=== PATIENT | female | born 1955 | race Caucasian/White ===

== ENCOUNTER → 2018-01-29 08:13 | Outpatient (CLI) | payer OTHER, SELFPAY ==
[2018-01-29 09:00] LABS: Add Manual Diff / Slide Review NO; Basophils Percent Auto 0.5 % (0-2); Eosinophils Percent Auto 16.1 % (2-4); Hematocrit 39.7 % (36-46); Hemoglobin 13.6 g/dL (12.0-16.0); Lymphocytes Percent Auto 28.6 % (25-40); Mean Corpuscular HGB Conc 34.3 % (30-36); Mean Corpuscular Hemoglobin 31.7 PG (26-34); Mean Corpuscular Volume 92.6 fL (80-100); Monocytes Percent Auto 5.4 % (3-14); Neutrophils Absolute Auto 6800 /uL (3000-5900); Neutrophils Percent Auto 49.4 % (50-75); Platelet Count 228 X10^3/uL (150-400); Red Blood Cell Count 4.28 X10^6/uL (4.0-5.2); Red Cell Distribution Width 13.1 % (11.6-14.8); White Blood Cell Count 13.7 X10^3/uL (4.5-11.0)
[2018-01-29 09:25] LABS: Alanine Aminotransferase 41 IU/L (9-52); Albumin 4.7 g/dL (3.5-5.0); Albumin Globulin Ratio 1.6 (1.0-2.8); Alkaline Phosphatase 66 U/L (38-126); Aspartate Aminotransferase 36 IU/L (14-36); BUN Creatinine Ratio 25.7 (6-22); Bilirubin Total 0.4 mg/dL (0.2-1.3); Blood Urea Nitrogen 18 mg/dL (7-17); Carbon Dioxide 28 mmol/L (22-32); Chloride 102 mmol/L (98-107); Cholesterol 195 mg/dL (140-199); Estimated Glomerular Filt Rate > 60.0 mL/min (>60); Globulin 2.9 g/dL (1.7-4.1); Glucose 104 mg/dL (80-110); HDL Cholesterol 41 mg/dL (40-60); HEMOLYSIS < 15 (0-50); LDL Cholesterol Calculated 122 mg/dL (<100); Potassium 4.5 mmol/L (3.4-5.1); Sodium 142 mmol/L (137-145); Total Protein 7.6 g/dL (6.3-8.2); Triglycerides 159 mg/dL (35-150)
[2018-01-29 10:07] LABS: Thyroid Stimulating Hormone 2.87 uIU/mL (0.47-4.68)
== END ==
PROVIDERS: Family Provider Nurse Practitioner Psychiatric/Mental Health; PCP Family Medicine; Visit Provider Family Medicine
DX: E03.9 Hypothyroidism, unspecified (principal); Z00.00 Encounter for general adult medical examination without abnormal findings
CPT/HCPCS: 36415; 80053; 80061; 84443; 85025

== ENCOUNTER → 2018-02-03 12:04 | Outpatient (CLI) | payer OTHER, SELFPAY | PROVIDERS: Family Provider Nurse Practitioner Psychiatric/Mental Health; PCP Family Medicine | DX: Z23 Encounter for immunization (principal) | CPT/HCPCS: 90471; 90686 ==

== ENCOUNTER → 2018-04-07 14:29 | Outpatient (CLI) | payer OTHER, SELFPAY ==
[2018-04-07 15:16] LABS: Add Manual Diff / Slide Review NO; Basophils Percent Auto 0.4 % (0-2); Eosinophils Percent Auto 3.7 % (2-4); Hematocrit 38.1 % (36-46); Hemoglobin 12.8 g/dL (12.0-16.0); Lymphocytes Percent Auto 28.8 % (25-40); Mean Corpuscular HGB Conc 33.7 % (30-36); Mean Corpuscular Hemoglobin 31.5 PG (26-34); Mean Corpuscular Volume 93.3 fL (80-100); Monocytes Percent Auto 6.5 % (3-14); Neutrophils Absolute Auto 5500 /uL (3000-5900); Neutrophils Percent Auto 60.6 % (50-75); Platelet Count 240 X10^3/uL (150-400); Red Blood Cell Count 4.08 X10^6/uL (4.0-5.2); Red Cell Distribution Width 13.2 % (11.6-14.8); White Blood Cell Count 9.1 X10^3/uL (4.5-11.0)
--- NOTE | 2018-04-07 15:29 | DI.RAD.S_ITS ---
PROCEDURE: XR CHEST 2V INDICATIONS: cough TECHNIQUE: 2 views of the chest were acquired. COMPARISON: [facility], , CHEST 2 VIEW, 05/11/2016, 10:06. FINDINGS: Surgical changes and devices: None. Lungs and pleura: No pleural effusions or pneumothorax. Lungs are clear. Mediastinum: Mediastinal contours are normal. Heart size is normal. Bones and chest wall: No suspicious bony abnormalities. Soft tissues appear unremarkable. IMPRESSION: No acute cardiopulmonary pathology. Dictated by: Jasvir Jacobo M.D. on 04/07/2018 at 16:44 Approved by: Jasvir Jacobo M.D. on 04/07/2018 at 16:44
[2018-04-07 15:44] LABS: Alanine Aminotransferase 49 IU/L (9-52); Albumin Globulin Ratio 1.5 (1.0-2.8); Alkaline Phosphatase 55 U/L (38-126); Aspartate Aminotransferase 33 IU/L (14-36); Bilirubin Total 0.1 mg/dL (0.2-1.3); Blood Urea Nitrogen 16 mg/dL (7-17); Calcium 9.5 mg/dL (8.4-10.2); Carbon Dioxide 25 mmol/L (22-32); Chloride 104 mmol/L (98-107); Estimated Glomerular Filt Rate 56.6 mL/min (>60); Globulin 2.6 g/dL (1.7-4.1); Glucose 113 mg/dL (80-110); HEMOLYSIS < 15 (0-50); Potassium 4.4 mmol/L (3.4-5.1); Sodium 141 mmol/L (137-145); Total Protein 6.6 g/dL (6.3-8.2)
[2018-04-07 16:15] LABS: Thyroid Stimulating Hormone 2.53 uIU/mL (0.47-4.68)
== END ==
PROVIDERS: Family Provider Nurse Practitioner Psychiatric/Mental Health; PCP Family Medicine; Visit Provider Family Medicine
DX: Z86.39 Personal history of other endocrine, nutritional and metabolic disease (principal); R42 Dizziness and giddiness; R05 Cough
CPT/HCPCS: 36415; 71046; 80053; 84443; 85025

== ENCOUNTER → 2018-04-15 07:41 | Outpatient (CLI) | payer OTHER, SELFPAY ==
--- NOTE | 2018-04-15 07:43 | DI.MRI.S_ITS ---
PROCEDURE: MR BRAIN (IAC) WWO CON INDICATIONS: vertigo TECHNIQUE: Noncontrast sagittal T1 spin echo, axial FLAIR, axial gradient echo, axial diffusion and ADC through the brain. Axial thin-slice 3D CISS, coronal TruFISP, axial T1 spin echo with fat saturation through the internal auditory canals. After the administration of contrast, thin slice axial and coronal T1 spin echo with fat saturation through the internal auditory canals, and axial T1 spin echo with fat saturation through the brain. COMPARISON: None. FINDINGS: Image quality: Excellent. Cerebellopontine angles: No cerebellopontine angle masses. Inner ear structures appear normally formed. No suspicious enhancement in the internal auditory canal or along the course of the 7th cranial nerve. CSF spaces: Ventricles are normal in size and shape. No extra-axial fluid collections. Basal cisterns are patent. Brain: No intracranial bleeds or mass effects. There scattered subcentimeter areas white matter signal change bilaterally. Lundberg-white matter interface is intact. No abnormal intracranial enhancement. Diffusion weighted images demonstrate no acute ischemic insults. Brainstem appears normal. Normal intravascular flow voids are present. Skull and face: Calvarial marrow signal is normal. Orbits appear normal. Mastoids appear clear. Mild left maxillary sinus disease. There is also moderate to severe left sphenoid sinus disease. IMPRESSION: No abnormal CP angle mass or enhancement. Scattered white matter (nonenhancing) signal changes which are technically nonspecific although statistically represent chronic microvascular ischemic disease. Left maxillary and sphenoid sinus disease. Dictated by: Yemi Evans M.D. on 04/15/2018 at 10:13 Approved by: Yemi Evans M.D. on 04/15/2018 at 10:28
== END ==
PROVIDERS: Family Provider Nurse Practitioner Psychiatric/Mental Health; PCP Family Medicine; Visit Provider Family Medicine
DX: R42 Dizziness and giddiness (principal); J32.8 Other chronic sinusitis
CPT/HCPCS: 70553; A9579

== ENCOUNTER → 2018-04-23 07:10 | Outpatient (CLI) | payer OTHER, SELFPAY ==
--- NOTE | 2018-04-23 07:11 | DI.MRI.S_ITS ---
PROCEDURE: MR LUMBAR SPINE WO CON INDICATIONS: pain TECHNIQUE: Noncontrast sagittal T1 spin echo and T2 fast echo, sagittal STIR, axial T1 and T2 fast spin echo through the lumbar spine. In cases with scoliosis, additional coronal T2 fast spin echo may be performed. COMPARISON: Located [facility], , L-SPINE WITHOUT CONTRAST, 08/14/2006, 7:53. FINDINGS: Image quality: Excellent. Alignment and Curvature: No plain films are available for comparison, for numbering purposes. Thus, for the purposes of this examination, 5 lumbar type vertebral bodies will be presumed, as denoted on the montage panel. This should be confirmed and correlated with plain films, prior to any lumbar spinal intervention. There is loss of normal lumbar lordosis. Bone Marrow: Marrow is of normal overall signal. No acute vertebral body compression fractures. There is mild reactive signal within the endplates adjacent to the L2-L3 and L3-L4 intervertebral discs. L3 hemangioma. Spinal Cord: Conus medullaris terminates at the upper L2 level. Visualized cord demonstrates normal signal and size. Paraspinous Soft Tissues: No paravertebral masses. L1-L2: Mild bilateral facet and ligamentum flavum hypertrophy. Mild epidural lipomatosis. No significant canal, nor foraminal stenosis. No change. L2-L3: Mild disc height loss and desiccation. Mild diffuse disc bulge. Mild facet hypertrophy bilaterally. Mild epidural lipomatosis. Mild canal stenosis. No foraminal stenosis. No change. L3-L4: Mild disc height loss and desiccation. Mild diffuse disc bulge. Mild facet hypertrophy bilaterally. Mild epidural lipomatosis. No significant canal, nor foraminal stenosis. L4-L5: Mild disc height loss and desiccation. Mild bilateral facet and ligamentum hypertrophy. Mild epidural lipomatosis. Mild canal stenosis. No foraminal stenosis. No change. L5-S1: Mild bilateral facet hypertrophy. No significant canal, nor foraminal stenosis. No change. IMPRESSION: 1. Multilevel degenerative disc and facet disease, causing mild canal stenoses, and no foraminal stenoses. No neural impingement. Dictated by: Amalia Mora M.D. on 04/23/2018 at 9:06 Approved by: Amalia Mora M.D. on 04/23/2018 at 9:54
--- NOTE | 2018-04-23 07:22 | DI.CT.S_ITS ---
PROCEDURE: CT SINUS SCREEN WO CON INDICATIONS: sinusitis TECHNIQUE: Noncontrast 3.0 mm axial images acquired from the frontal sinuses to the mid-sella, with coronal and sagittal reformats. For radiation dose reduction, the following was used: automated exposure control, adjustment of mA and/or kV according to patient size. COMPARISON: [facility], MR, MR BRAIN (IAC) WWO CON, 04/15/2018, 7:59. [facility], MR, BRAIN WITHOUT CONTRAST, 11/08/2009, 8:01. FINDINGS: Image quality: Excellent. Maxillary Sinuses: No bony remodeling or destruction. A small mucus retention cyst in right maxillary sinus. Ethmoid Air Cells: No bony remodeling or destruction. Sinuses are clear. Sphenoid Sinuses: No bony remodeling or destruction. Sinuses are clear. Frontal Sinuses: No bony remodeling or destruction. Sinuses are clear. Ostiomeatal Complexes: Ostiomeatal complexes are patent. No Coreen cells. Miscellaneous: Visualized intra-orbital contents are normal. No alessandro bullosa or paradoxical turbinate curvature. Mild rightward nasal septal deviation. IMPRESSION: 1. A mucous retention cyst in the right maxillary sinus. 2. Mild rightward nasal septum deviation. Dictated by: Jenniffer Archer M.D. on 04/23/2018 at 10:03 Approved by: Jenniffer Archer M.D. on 04/23/2018 at 10:06
== END ==
PROVIDERS: Family Provider Nurse Practitioner Psychiatric/Mental Health; PCP Family Medicine; Visit Provider Family Medicine
DX: M54.5 Low back pain (principal); M51.36 Other intervertebral disc degeneration, lumbar region; M48.061 Spinal stenosis, lumbar region without neurogenic claudication; J34.1 Cyst and mucocele of nose and nasal sinus; J34.2 Deviated nasal septum; J32.9 Chronic sinusitis, unspecified; G89.29 Other chronic pain
CPT/HCPCS: 70486; 72148

== ENCOUNTER → 2018-08-11 06:58 | Outpatient (CLI) | payer OTHER, SELFPAY ==
[2018-08-11 08:43] LABS: Add Manual Diff / Slide Review NO; Basophils Absolute Auto 0 /uL (0-100); Basophils Percent Auto 0.3 % (0-2); Eosinophils Absolute Auto 400 /uL (0-450); Hematocrit 40.5 % (36-46); Hemoglobin 13.4 g/dL (12.0-16.0); Lymphocytes Absolute Auto 4400 /uL (1100-4500); Lymphocytes Percent Auto 35.6 % (25-40); Mean Corpuscular Hemoglobin 31.2 PG (26-34); Mean Corpuscular Volume 94.4 fL (80-100); Monocytes Absolute Auto 800 /uL (0-900); Monocytes Percent Auto 6.4 % (3-14); Neutrophils Absolute Auto 6700 /uL (1500-7000); Neutrophils Percent Auto 54.7 % (50-75); Platelet Count 236 X10^3/uL (150-400); Red Blood Cell Count 4.29 X10^6/uL (4.0-5.2); Red Cell Distribution Width 13.2 % (11.6-14.8); White Blood Cell Count 12.3 X10^3/uL (4.5-11.0)
[2018-08-11 09:08] LABS: Alanine Aminotransferase 40 IU/L (9-52); Albumin 4.2 g/dL (3.5-5.0); Albumin Globulin Ratio 1.5 (1.0-2.8); Alkaline Phosphatase 60 U/L (38-126); Aspartate Aminotransferase 27 IU/L (14-36); BUN Creatinine Ratio 23.3 (6-22); Bilirubin Total 0.3 mg/dL (0.2-1.3); Blood Urea Nitrogen 14 mg/dL (7-17); Calcium 9.6 mg/dL (8.4-10.2); Carbon Dioxide 24 mmol/L (22-32); Chloride 104 mmol/L (98-107); Cholesterol 152 mg/dL (140-199); Estimated Glomerular Filt Rate > 60.0 mL/min (>60); Globulin 2.8 g/dL (1.7-4.1); Glucose 88 mg/dL (80-110); HDL Cholesterol 33 mg/dL (40-60); HEMOLYSIS < 15 (0-50); LDL Cholesterol Calculated 82 mg/dL (<100); Magnesium 1.9 mg/dL (1.6-2.3); Potassium 4.7 mmol/L (3.4-5.1); Sodium 138 mmol/L (137-145); Triglycerides 186 mg/dL (35-150)
[2018-08-11 09:36] LABS: Thyroid Stimulating Hormone 5.33 uIU/mL (0.47-4.68)
== END ==
PROVIDERS: PCP Family Medicine; Visit Provider Family Medicine
DX: I10 Essential (primary) hypertension (principal)
CPT/HCPCS: 36415; 80053; 80061; 83735; 84443; 85025

== ENCOUNTER → 2018-08-26 11:06 | Outpatient (CLI) | payer OTHER, SELFPAY ==
--- NOTE | 2018-08-26 11:08 | DI.MG.S_ITS ---
BILATERAL DIGITAL SCREENING MAMMOGRAM 3D/2D WITH CAD: 08/26/2018 CLINICAL: Routine screening. Comparison is made to exams dated: 09/14/2016 mammogram, 09/14/2015 mammogram, and 09/08/2014 mammogram - [facility]. The tissue of both breasts is heterogeneously dense. This may lower the sensitivity of mammography. Current study was also evaluated with a Computer Aided Detection (CAD) system. No significant masses, calcifications, or other findings are seen in either breast. There has been no significant interval change. IMPRESSION: NEGATIVE There is no mammographic evidence of malignancy. A 1 year screening mammogram is recommended. This exam was interpreted at Station ID: [id number]. NOTE: For mammograms, a report in lay terms will be sent to the patient. Approximately 15% of breast malignancies will not be visualized mammographically. In the management of a palpable breast mass, a negative mammogram must not discourage biopsy of a clinically suspicious lesion. Electronically Signed By: Sushant chadwick/sy:08/26/2018 12:49:42 letter sent: Normal Exam ACR BI-RADS Category 1: Negative [id number]
== END ==
PROVIDERS: Family Provider Family Medicine; PCP Family Medicine; Visit Provider Family Medicine
DX: Z12.31 Encounter for screening mammogram for malignant neoplasm of breast (principal)
CPT/HCPCS: 77063; 77067

== ENCOUNTER → 2018-08-29 07:11 | Outpatient (CLI) | payer OTHER, SELFPAY ==
--- NOTE | 2018-08-29 07:13 | DI.ECHO.S_ITS ---
[facility] +---------+ : : [address] [place] : : : : [id number] : : : : Phone: [phone]+ Echocardiogram Report + + :Name: ANYA HALE Study Date: 08/29/2018 Height: 65 in : :[facility] Weight: 193 lb : : Gender: Female BSA: 1.9 m2 : :: 1955 Age: 62 yrs BP: 140/86 mmHg: :Reason For Study: Atrial fibrillation - paroxysmal : :Ordering Physician: Dr. Gee : :Leroy Performed By: Shelley Marlow : :Referring: VIJAYA BECERRA : + + Interpretation Summary The left ventricle is normal in size. Left ventricular systolic function is normal without focal wall motion abnormalities. The ejection fraction is estimated to be 60-65%. Diastolic parameters suggest probable normal left entricular diastolic function and normal filling pressures. The right ventricle is normal in size and function. Right ventricular systolic pressure is estimated to be 17 mmHg plus the clinically estimated CVP which cannot be estimated on this exam. The left atrium is mildly dilated. Right atrial size is normal. There is no significant valvular heart disease. The aortic root is normal size. No significant changes since 05/11/2011. Procedure: A two-dimensional transthoracic echocardiogram with color flow and Doppler was performed. The study quality was technically adequate. Comparison is made with the echocardiogram of 05/11/2011. The patient was in normal sinus rhythm during the exam. Left Ventricle: The left ventricle is normal in size. Left ventricular wall thickness is mildly increased. There is no ventricular septal defect visualized. Left ventricular systolic function is normal without focal wall motion abnormalities. The ejection fraction is estimated to be 60-65%. Diastolic parameters suggest probable normal left ventricular diastolic function and normal filling pressures. Right Ventricle: The right ventricle is normal in size and function. Atria: The left atrium is mildly dilated. Right atrial size is normal. There is no Doppler evidence for an interatrial shunt. Mitral Valve: The mitral valve is normal in structure and function. There is no mitral regurgitation noted. Aortic Valve: The aortic valve is normal in structure and function. No aortic regurgitation is present. Tricuspid Valve: The tricuspid valve is normal in structure and function. There is a trace or physiologic amount of tricuspid regurgitation. Right ventricular systolic pressure is estimated to be 17 mmHg plus the clinically estimated CVP which cannot be estimated on this exam. Pulmonic Valve: The pulmonic valve is not well seen, but is grossly normal. There is a trace or physiologic amount of pulmonic regurgitation. There is no significant valvular heart disease. Great Vessels: The aortic root is normal size. The ascending aorta is normal in size. The aortic arch is normal in size. The inferior vena cava was not visualized. Pericardium/ Pleura There is no pericardial effusion. MMode/2D Measurements & Calculations LVIDd: 4.7 cm LVOT diam: 2.1 cm LVIDs: 3.2 cm Ao root diam: 2.9 cm FS: 32.2 % Aortic Jxn: 2.4 cm EPSS: 0.57 cm asc Aorta Diam: 3.2 cm IVSd: 1.1 cm Ao Arch Diam (Prox Trans): 2.7 cm LVPWd: 1.1 cm LV gomez. diameter/BSA (cm/m^2): 2.4 LV sys. diameter/BSA (cm/m^2): 1.6 LA A2 area: 22.2 cm2 RA long axis: 4.4 cm LA A4 area: 21.2 cm2 RA area: 13.8 cm2 LA length (vol): 5.5 cm RA vol: 36.8 ml LA vol: 73.2 ml RA : 18.9 ml/m2 LA vol index: 37.6 ml/m2 RVD1 (basal): 3.3 cm TAPSE: 1.9 cm Doppler Measurements & Calculations Ao V2 max: 121.2 cm/sec LVOT Max Moises: 83.7 cm/sec Ao V2 mean: 89.1 cm/sec LV V1 max P.8 mmHg Ao max P.9 mmHg LV V1 VTI: 15.6 cm Ao mean P.4 mmHg ALEJANDRO(I,D): 2.3 cm2 Ao V2 VTI: 24.2 cm ALEJANDRO(V,D): 2.5 cm2 sev ratio: 0.64 ALEJANDRO indexed to BSA (cm^2/m^2): 1.2 MV E max moises: 60.9 cm/sec TR max moises: 208.0 cm/sec MV A max moises: 55.1 cm/sec TR max P.3 mmHg MV E/A: 1.1 PA V2 max: 76.6 cm/sec Med Peak E' Moises: 6.0 cm/sec PA V2 mean: 55.5 cm/sec E/E' med: 10.1 PA mean P.3 mmHg Lat Peak E' Moises: 10.4 cm/sec PA Accel Time: 0.10 sec E/E' lat: 5.8 E/e' average: 8.0 MV dec time: 0.17 sec MV P1/2t: 52.4 msec MV P1/2t max moises: 60.9 cm/sec SV(LVOT): 55.6 ml MVA(2t): 4.2 cm2 Reading Physician:08:48 AM
== END ==
PROVIDERS: Family Provider Family Medicine; PCP Family Medicine; Visit Provider Family Medicine
DX: I48.0 Paroxysmal atrial fibrillation (principal); R07.89 Other chest pain
CPT/HCPCS: 93306

== ENCOUNTER → 2018-09-01 10:38 | Outpatient (CLI) | payer OTHER, SELFPAY | PROVIDERS: Family Provider Family Medicine; PCP Family Medicine; Visit Provider Family Medicine | DX: L98.9 Disorder of the skin and subcutaneous tissue, unspecified (principal) | CPT/HCPCS: 87070; 87205 ==

== ENCOUNTER 2018-09-16 16:45 | Outpatient (RCR) | payer OTHER, SELFPAY ==
--- NOTE | 2018-07-20 17:11 | PT.OPPOC ---
Current Diagnoses Cervicalgia (07/29/18) Low back pain (07/29/18) Provider Visit Care Team Role Provider Type PRICE Rodriguez Family Provider Non-Staff Specialty: Medical Address: [address], [address] Email: Gerard Harepr MD Attending Provider Physician Primary Care Provider Specialty: Family Practice Address: [address] [place] [address], [id number] Email: [email or web address] Plan Of Care PT-OP-T Assessment and Plan Start: 07/22/18 17:10 Freq: Status: Active Protocol: Document 07/22/18 17:11 EA (Rec: 07/22/18 17:38 EA [id number]) Physical Therapy Assessment Rehab Potential Rehabilitation Potential Fair Evaluation Complexity Number of Personal Factors/Comorbidities 1-2 Number of Body Systems Impaired 3 Clinical Presentation at Evaluation Evolving Impairments Impairments Activity Tolerance Pain Posture ROM Soft Tissue Mobility Goals Three Impairment Impaired sleep time Intermediate Goal (LTG) Patient will sleep more than 6 hours without bothering from neck and low back pain LTG Duration 4 wks Two Impairment Oswetry low back index score of 15/50 Intermediate Goal (LTG) Patient will have Oswetry score of <10/50 LTG Duration 4 wks One Impairment Neck disability index score 15 /50 Cardio Clinician Goal (LTG) Patient will have Neck disability score of < 10/50 LTG Duration 4 wks Assessment Summary Assessment Plesant 62 y/o F patient with a referring diagnosis of neck and low back pain. Today patient exhibited slight limitation lumbar and cervical mobility due to tightness and pain. Special tests reveals positive with posterior quadrant test to cervical and lumbar region with no nerve compression noted. Due to pain and discomfort to low back and cervical region, patient has difficulty sleeping, sitting and standing for along period of time. In my professional opinion patient would benefit with skilled PT to address the aforementioned issues. Physical Therapy Plan Frequency and Duration Frequency of Treatment 2x/Week Duration of Treatment 8 wks Plan of Care Start Date 07/22/18 Plan of Care End Date 09/16/18 Therapeutic Interventions Therapeutic Interventions Home Exercise Program Joint Mobilizations Manual Therapy Patient/Caregiver Education Self-Care/Home Management Soft Tissue Mobilization Therapeutic Activities Therapeutic Exercises Modalities Cold Pack/Ice Massage Electric Stimulation Hot Packs Ultrasound Next Visit Focus/Plan Next Note Type Treatment Note Plan of Care Dates Plan of Care Start Date 07/22/18 Plan of Care End Date 09/16/18 Please Sign and Return: I have reviewed this Plan of Care and certify that the skilled therapy services above are required to meet the patient?s needs. Physician Signature Date Printed Name and Credentials Clinical Instructor Signature Printed Name and Credentials
--- NOTE | 2018-07-20 17:11 | PT.OIE ---
Current Diagnoses Cervicalgia (07/29/18) Low back pain (07/29/18) Past Medical History (Last Updated 01/31/18 @ 21:17 by Amanda Forrester) Allergy (Chronic) Anxiety (Chronic ~2001) Bilateral bunions (Chronic) Cataracts, bilateral (Chronic ~2009) Cervical spine disease (Chronic) Chronic back pain (Chronic) Depression (Chronic ~1971) Headache (Chronic ~1969) Herniated cervical disc (Chronic) Hypothyroidism (Chronic ~2002) Irritable bowel syndrome (Chronic ~1999) Menopause (Chronic ~2005) Migraines (Chronic ~1969) SVT (supraventricular tachycardia) (Chronic) Chicken pox (Resolved) Herpes (Resolved ~1979) Suicide attempt (Resolved ~2007) Past Surgical History (Last Updated 01/31/18 @ 21:17 by Amanda Forrester) Anesthesia (Resolved) History of biopsy (Resolved ~2003) History of surgery (Resolved ~2002) Lipoma (Resolved ~1997) Status post endometrial ablation (~1992) Status post vaginal hysterectomy (~1997) Provider Visit Care Team Role Provider Type PRICE Rodriguez Family Provider Non-Staff Specialty: Medical Address: [address] [place] [address], [address] Email: Gerard Harper MD Attending Provider Physician Primary Care Provider Specialty: Family Practice Address: [address] [place] [address], [facility] Email: [email or web address] Physical Therapy Initial Evaluation PT-OP-A Visit Information Start: 07/22/18 17:10 Freq: Status: Active Protocol: Document 07/22/18 17:11 EA (Rec: 07/22/18 17:38 EA [id number]) Out-Patient Physical Therapy Visit Information Visit Information Visit Type Initial Evaluation Visit Start Time 16:00 Visit Stop Time 16:40 Total Visit Minutes 40 Visit Number 1 Number of GEOSPATIAL TECHNOLOGIST Visits 0 Evaluation Information Evaluation Date 07/22/18 PT-OP-B Current Condition Start: 07/22/18 17:10 Freq: Status: Active Protocol: Document 07/22/18 17:11 EA (Rec: 07/22/18 17:38 EA [id number]) Current Condition History of Current Condition Onset Date 6 months ago Current Complaints Localized lumbar and cervical pain History of Current Condition Patient reports present complaint of cervical and lumbar localized aching pain started > 10 years ago but was out of pain five years ago; states flared ups happens 6 months ago with no known reasons. 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 PT-OP-C Subjective Start: 07/22/18 17:10 Freq: Status: Active Protocol: Document 07/22/18 17:11 EA (Rec: 07/23/18 07:30 EA [id number]) OP-PT Subjective Patient Comments Patient Comments I don't necessarily believe in PT But it may help me. Pt reports had multple session with PT in the past but similar complaints were no resolved. Patient Reported Progress Same Patient Questionnaires Neck Disability Index NDI Score 15 Neck Disability Index Impairment 1 to 19% Impaired (Score 1-9) Oswestry Low Back Index Oswestry Score 15 Oswestry Impairment 1 to 19% Impaired (Score 1-19) OP-PT Pain Assessment Pain Assessment Grid Paper Pain Assessment Grid Completed Yes Location Bilateral Lower Posterior Lateral Back Intensity 4 Scale Used Numeric (1 - 10) Description Aching Tender Frequency Intermittent Pain Alleviating Factors Heat Medication Bilateral Posterior Neck Pain Location Details 4 Scale Used Numeric (1 - 10) Description Aching Tender Frequency Intermittent Pain Alleviating Factors Heat Medication Home Pain Medication Use Pain Medications Used Yes PT-OP-G Mobility & Gait Start: 07/22/18 17:10 Freq: Status: Active Protocol: Document 07/22/18 17:11 EA (Rec: 07/23/18 07:23 EA [id number]) OP Gait Assessment Gait Gait Assistance Required: Independent Assistive Devices Assistive Device None Gait Deviations General Gait Pattern Within Normal Limits Comments Gait Comments Patient ambulates with no gait deviation noted PT-OP-J Posture/Palpation/Skin Start: 07/22/18 17:10 Freq: Status: Active Protocol: Document 07/22/18 17:38 EA (Rec: 07/22/18 17:40 EA [id number]) Posture Evaluation Position Standing Evaluation View ant/lat Head/C-Spine Posture Flexed L-Spine Posture Increased Lordosis Scapula Posture (L) Retracted Pelvis Posture Anteriorly Tilted Palpation Assessment Location One Palpation Findings Tenderness PT-OP-K Range of Motion Start: 07/22/18 17:10 Freq: Status: Active Protocol: Document 07/22/18 17:11 EA (Rec: 07/22/18 17:38 EA [id number]) Cervical Spine Range of Motion Cervical Spine Active Percentage Testing Position Sitting Flexion 80 Extension 80 Rotation Left 90 Rotation Right 90 Lateral Flexion Left 80 Lateral Flexion Right 80 ROM Limitations Soft Tissue Tightness Pain Lumbar Spine Range of Motion Lumbar Spine Active Percentage Flexion 100 Extension 50 Rotation Left 85 Rotation Right 85 Lateral Flexion Left 70 Lateral Flexion Right 70 ROM Limitations Soft Tissue Tightness Pain PT-OP-L Special Tests Start: 07/22/18 17:10 Freq: Status: Active Protocol: Document 07/22/18 17:11 EA (Rec: 07/22/18 17:38 EA [id number]) Special Tests Cervical Spine Special Tests Other- 1 Test Results + posterior quadrant for facets Vertebral Artery Test Results - Lumbar Spine Special Tests Other- 1 Test Results + posterior quadrant test ( facets) Prone Instability Test Test Results - Straight Leg Raise Test Results - PT-OP-M Strength Start: 07/22/18 17:10 Freq: Status: Active Protocol: Document 07/22/18 17:11 EA (Rec: 07/22/18 17:38 EA [id number]) Shoulder Strength Shoulder Manual Muscle Testing Right Reason Not Measured WFL Left Reason Not Measured WFL Hip Strength Hip Manual Muscle Testing Right Reason Not Measured WFL Left Reason Not Measured WFL Knee Strength Knee Manual Muscle Testing Right Reason Not Measured WFL Left Reason Not Measured WFL PT-OP-Q Treatments Start: 07/22/18 17:10 Freq: Status: Active Protocol: Document 07/22/18 17:11 EA (Rec: 07/22/18 17:38 EA [id number]) Self-Care/Home Management Treatment Education Patient Education Body Mechanics Pain Management Posture Other Education Discussed the importance daily light to mod aerobic exercises. PT-OP-T Assessment and Plan Start: 07/22/18 17:10 Freq: Status: Active Protocol: Document 07/22/18 17:11 SAVANNAH (Rec: 07/22/18 17:38 EA [id number]) Physical Therapy Assessment Rehab Potential Rehabilitation Potential Fair Evaluation Complexity Number of Personal Factors/Comorbidities 1-2 Number of Body Systems Impaired 3 Clinical Presentation at Evaluation Evolving Impairments Impairments Activity Tolerance Pain Posture ROM Soft Tissue Mobility Goals Three Impairment Impaired sleep time Mechanical Design Engineer Facilities Goal (LTG) Patient will sleep more than 6 hours without bothering from neck and low back pain LTG Duration 4 wks Two Impairment Oswetry low back index score of 15/50 Mechanical Design Engineer Facilities Goal (LTG) Patient will have Oswetry score of <10/50 LTG Duration 4 wks One Impairment Neck disability index score 15 /50 Mechanical Design Engineer Facilities Goal (LTG) Patient will have Neck disability score of < 10/50 LTG Duration 4 wks Assessment Summary Assessment Pleasant 62 y/o F patient with a referring diagnosis of neck and low back pain. Today patient exhibited slight limitation lumbar and cervical mobility due to tightness and pain. Special tests reveals positive with posterior quadrant test to cervical and lumbar region with no nerve compression noted. Due to pain and discomfort to low back and cervical region, patient has difficulty sleeping, sitting and standing for along period of time. In my professional opinion patient would benefit with skilled PT to address the aforementioned issues. Physical Therapy Plan Frequency and Duration Frequency of Treatment 2x/Week Duration of Treatment 8 wks Plan of Care Start Date 07/22/18 Plan of Care End Date 09/16/18 Therapeutic Interventions Therapeutic Interventions Home Exercise Program Joint Mobilizations Manual Therapy Patient/Caregiver Education Self-Care/Home Management Soft Tissue Mobilization Therapeutic Activities Therapeutic Exercises Modalities Cold Pack/Ice Massage Electric Stimulation Hot Packs Ultrasound Next Visit Focus/Plan Next Note Type Treatment Note
--- NOTE | 2018-07-22 17:11 | PT.OPPOC ---
Current Diagnoses Cervicalgia (07/29/18) Low back pain (07/29/18) Provider Visit Care Team Role Provider Type PRICE Rodriguez Family Provider Non-Staff Specialty: Medical Address: [address], [address] Email: Gerard Harper MD Attending Provider Physician Primary Care Provider Specialty: Family Practice Address: [address] [place] [address], [id number] Email: [email or web address] Plan Of Care PT-OP-T Assessment and Plan Start: 07/22/18 17:10 Freq: Status: Active Protocol: Document 07/22/18 17:11 EA (Rec: 07/22/18 17:38 EA [id number]) Physical Therapy Assessment Rehab Potential Rehabilitation Potential Fair Evaluation Complexity Number of Personal Factors/Comorbidities 1-2 Number of Body Systems Impaired 3 Clinical Presentation at Evaluation Evolving Impairments Impairments Activity Tolerance Pain Posture ROM Soft Tissue Mobility Goals Three Impairment Impaired sleep time Jail Goal (LTG) Patient will sleep more than 6 hours without bothering from neck and low back pain LTG Duration 4 wks Two Impairment Oswetry low back index score of 15/50 Jail Goal (LTG) Patient will have Oswetry score of <10/50 LTG Duration 4 wks One Impairment Neck disability index score 15 /50 Aerobics Teacher Goal (LTG) Patient will have Neck disability score of < 10/50 LTG Duration 4 wks Assessment Summary Assessment Pleasant 62 y/o F patient with a referring diagnosis of neck and low back pain. Today patient exhibited slight limitation lumbar and cervical mobility due to tightness and pain. Special tests reveals positive with posterior quadrant test to cervical and lumbar region with no nerve compression noted. Due to pain and discomfort to low back and cervical region, patient has difficulty sleeping, sitting and standing for along period of time. In my professional opinion patient would benefit with skilled PT to address the aforementioned issues. Physical Therapy Plan Frequency and Duration Frequency of Treatment 2x/Week Duration of Treatment 8 wks Plan of Care Start Date 07/22/18 Plan of Care End Date 09/16/18 Therapeutic Interventions Therapeutic Interventions Home Exercise Program Joint Mobilizations Manual Therapy Patient/Caregiver Education Self-Care/Home Management Soft Tissue Mobilization Therapeutic Activities Therapeutic Exercises Modalities Cold Pack/Ice Massage Electric Stimulation Hot Packs Ultrasound Next Visit Focus/Plan Next Note Type Treatment Note Plan of Care Dates Plan of Care Start Date 07/22/18 Plan of Care End Date 09/16/18 Please Sign and Return: I have reviewed this Plan of Care and certify that the skilled therapy services above are required to meet the patient?s needs. Physician Signature Date Printed Name and Credentials Clinical Instructor Signature Printed Name and Credentials
--- NOTE | 2018-07-22 17:11 | PT.OIE ---
Current Diagnoses Cervicalgia (07/29/18) Low back pain (07/29/18) Past Medical History (Last Updated 01/31/18 @ 21:17 by Amanda Forrester) Allergy (Chronic) Anxiety (Chronic ~2001) Bilateral bunions (Chronic) Cataracts, bilateral (Chronic ~2009) Cervical spine disease (Chronic) Chronic back pain (Chronic) Depression (Chronic ~1971) Headache (Chronic ~1969) Herniated cervical disc (Chronic) Hypothyroidism (Chronic ~2002) Irritable bowel syndrome (Chronic ~1999) Menopause (Chronic ~2005) Migraines (Chronic ~1969) SVT (supraventricular tachycardia) (Chronic) Chicken pox (Resolved) Herpes (Resolved ~1979) Suicide attempt (Resolved ~2007) Past Surgical History (Last Updated 01/31/18 @ 21:17 by Amanda Forrester) Anesthesia (Resolved) History of biopsy (Resolved ~2003) History of surgery (Resolved ~2002) Lipoma (Resolved ~1997) Status post endometrial ablation (~1992) Status post vaginal hysterectomy (~1997) Provider Visit Care Team Role Provider Type PRICE Rodriguez Family Provider Non-Staff Specialty: Medical Address: [address] [place] [address], [id number] Email: Gerard Harper MD Attending Provider Physician Primary Care Provider Specialty: Family Practice Address: [address] [place] [address], [facility] Email: [email or web address] Physical Therapy Initial Evaluation PT-OP-A Visit Information Start: 07/22/18 17:10 Freq: Status: Active Protocol: Document 07/22/18 17:11 EA (Rec: 07/22/18 17:38 EA [id number]) Out-Patient Physical Therapy Visit Information Visit Information Visit Type Initial Evaluation Visit Start Time 16:00 Visit Stop Time 16:40 Total Visit Minutes 40 Visit Number 1 Number of BLUEPRINT DUPLICATOR Visits 0 Evaluation Information Evaluation Date 07/22/18 PT-OP-B Current Condition Start: 07/22/18 17:10 Freq: Status: Active Protocol: Document 07/22/18 17:11 EA (Rec: 07/22/18 17:38 EA [id number]) Current Condition History of Current Condition Onset Date 6 months ago Current Complaints Localized lumbar and cervical pain History of Current Condition Patient reports present complaint of cervical and lumbar localized aching pain started > 10 years ago but was out of pain five years ago; states flared ups happens 6 months ago with no known reasons. 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 PT-OP-C Subjective Start: 07/22/18 17:10 Freq: Status: Active Protocol: Document 07/22/18 17:11 EA (Rec: 07/23/18 07:30 EA [id number]) OP-PT Subjective Patient Comments Patient Comments I don't necessarily believe in PT But it may help me. Pt reports had multple session with PT in the past but similar complaints were no resolved. Patient Reported Progress Same Patient Questionnaires Neck Disability Index NDI Score 15 Neck Disability Index Impairment 1 to 19% Impaired (Score 1-9) Oswestry Low Back Index Oswestry Score 15 Oswestry Impairment 1 to 19% Impaired (Score 1-19) OP-PT Pain Assessment Pain Assessment Grid Paper Pain Assessment Grid Completed Yes Location Bilateral Lower Posterior Lateral Back Intensity 4 Scale Used Numeric (1 - 10) Description Aching Tender Frequency Intermittent Pain Alleviating Factors Heat Medication Bilateral Posterior Neck Pain Location Details 4 Scale Used Numeric (1 - 10) Description Aching Tender Frequency Intermittent Pain Alleviating Factors Heat Medication Home Pain Medication Use Pain Medications Used Yes PT-OP-G Mobility & Gait Start: 07/22/18 17:10 Freq: Status: Active Protocol: Document 07/22/18 17:11 EA (Rec: 07/23/18 07:23 EA [id number]) OP Gait Assessment Gait Gait Assistance Required: Independent Assistive Devices Assistive Device None Gait Deviations General Gait Pattern Within Normal Limits Comments Gait Comments Patient ambulates with no gait deviation noted PT-OP-J Posture/Palpation/Skin Start: 07/22/18 17:10 Freq: Status: Active Protocol: Document 07/22/18 17:38 EA (Rec: 07/22/18 17:40 EA [id number]) Posture Evaluation Position Standing Evaluation View ant/lat Head/C-Spine Posture Flexed L-Spine Posture Increased Lordosis Scapula Posture (L) Retracted Pelvis Posture Anteriorly Tilted Palpation Assessment Location One Palpation Findings Tenderness PT-OP-K Range of Motion Start: 07/22/18 17:10 Freq: Status: Active Protocol: Document 07/22/18 17:11 EA (Rec: 07/22/18 17:38 EA [id number]) Cervical Spine Range of Motion Cervical Spine Active Percentage Testing Position Sitting Flexion 80 Extension 80 Rotation Left 90 Rotation Right 90 Lateral Flexion Left 80 Lateral Flexion Right 80 ROM Limitations Soft Tissue Tightness Pain Lumbar Spine Range of Motion Lumbar Spine Active Percentage Flexion 100 Extension 50 Rotation Left 85 Rotation Right 85 Lateral Flexion Left 70 Lateral Flexion Right 70 ROM Limitations Soft Tissue Tightness Pain PT-OP-L Special Tests Start: 07/22/18 17:10 Freq: Status: Active Protocol: Document 07/22/18 17:11 EA (Rec: 07/22/18 17:38 EA [id number]) Special Tests Cervical Spine Special Tests Other- 1 Test Results + posterior quadrant for facets Vertebral Artery Test Results - Lumbar Spine Special Tests Other- 1 Test Results + posterior quadrant test ( facets) Prone Instability Test Test Results - Straight Leg Raise Test Results - PT-OP-M Strength Start: 07/22/18 17:10 Freq: Status: Active Protocol: Document 07/22/18 17:11 EA (Rec: 07/22/18 17:38 EA [id number]) Shoulder Strength Shoulder Manual Muscle Testing Right Reason Not Measured WFL Left Reason Not Measured WFL Hip Strength Hip Manual Muscle Testing Right Reason Not Measured WFL Left Reason Not Measured WFL Knee Strength Knee Manual Muscle Testing Right Reason Not Measured WFL Left Reason Not Measured WFL PT-OP-Q Treatments Start: 07/22/18 17:10 Freq: Status: Active Protocol: Document 07/22/18 17:11 EA (Rec: 07/22/18 17:38 EA [id number]) Self-Care/Home Management Treatment Education Patient Education Body Mechanics Pain Management Posture Other Education Discussed the importance daily light to mod aerobic exercises. PT-OP-T Assessment and Plan Start: 07/22/18 17:10 Freq: Status: Active Protocol: Document 07/22/18 17:11 SAVANNAH (Rec: 07/22/18 17:38 EA [id number]) Physical Therapy Assessment Rehab Potential Rehabilitation Potential Fair Evaluation Complexity Number of Personal Factors/Comorbidities 1-2 Number of Body Systems Impaired 3 Clinical Presentation at Evaluation Evolving Impairments Impairments Activity Tolerance Pain Posture ROM Soft Tissue Mobility Goals Three Impairment Impaired sleep time Bat Lathe Operator Goal (LTG) Patient will sleep more than 6 hours without bothering from neck and low back pain LTG Duration 4 wks Two Impairment Oswetry low back index score of 15/50 Bat Lathe Operator Goal (LTG) Patient will have Oswetry score of <10/50 LTG Duration 4 wks One Impairment Neck disability index score 15 /50 Bat Lathe Operator Goal (LTG) Patient will have Neck disability score of < 10/50 LTG Duration 4 wks Assessment Summary Assessment Pleasant 62 y/o F patient with a referring diagnosis of neck and low back pain. Today patient exhibited slight limitation lumbar and cervical mobility due to tightness and pain. Special tests reveals positive with posterior quadrant test to cervical and lumbar region with no nerve compression noted. Due to pain and discomfort to low back and cervical region, patient has difficulty sleeping, sitting and standing for along period of time. In my professional opinion patient would benefit with skilled PT to address the aforementioned issues. Physical Therapy Plan Frequency and Duration Frequency of Treatment 2x/Week Duration of Treatment 8 wks Plan of Care Start Date 07/22/18 Plan of Care End Date 09/16/18 Therapeutic Interventions Therapeutic Interventions Home Exercise Program Joint Mobilizations Manual Therapy Patient/Caregiver Education Self-Care/Home Management Soft Tissue Mobilization Therapeutic Activities Therapeutic Exercises Modalities Cold Pack/Ice Massage Electric Stimulation Hot Packs Ultrasound Next Visit Focus/Plan Next Note Type Treatment Note
--- NOTE | 2018-07-29 18:03 | PT.OTN ---
Current Diagnoses Cervicalgia (07/29/18) Low back pain (07/29/18) Physical Therapy Treatment Note PT-OP-A Visit Information Start: 07/22/18 17:10 Freq: Status: Active Protocol: Document 07/29/18 17:00 HH (Rec: 07/29/18 18:03 HH [email or web address]) Out-Patient Physical Therapy Visit Information Visit Information Visit Type Treatment Note Visit Start Time 17:00 Visit Stop Time 17:55 Total Visit Minutes 55 Visit Number 2 Number of WATER VALVE REPAIRER Visits 0 PT-OP-B Current Condition Start: 07/22/18 17:10 Freq: Status: Active Protocol: Document 07/22/18 17:11 EA (Rec: 07/22/18 17:38 EA [id number]) Current Condition History of Current Condition Onset Date 6 months ago Current Complaints Localized lumbar and cervical pain History of Current Condition Patient reports present complaint of cervical and lumbar localized aching pain started > 10 years ago but was out of pain five years ago; states flared ups happens 6 months ago with no known reasons. 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 PT-OP-C Subjective Start: 07/22/18 17:10 Freq: Status: Active Protocol: Document 07/29/18 17:00 HH (Rec: 07/29/18 18:03 HH [email or web address]) OP-PT Subjective Patient Comments Patient Comments Im doing okay and my neck and back still feel heavy. PT-OP-G Mobility & Gait Start: 07/22/18 17:10 Freq: Status: Active Protocol: Document 07/22/18 17:11 EA (Rec: 07/23/18 07:23 EA [id number]) OP Gait Assessment Gait Gait Assistance Required: Independent Assistive Devices Assistive Device None Gait Deviations General Gait Pattern Within Normal Limits Comments Gait Comments Patient ambulates with no gait deviation noted PT-OP-J Posture/Palpation/Skin Start: 07/22/18 17:10 Freq: Status: Active Protocol: Document 07/22/18 17:38 EA (Rec: 07/22/18 17:40 EA [id number]) Posture Evaluation Position Standing Evaluation View ant/lat Head/C-Spine Posture Flexed L-Spine Posture Increased Lordosis Scapula Posture (L) Retracted Pelvis Posture Anteriorly Tilted Palpation Assessment Location One Palpation Findings Tenderness PT-OP-K Range of Motion Start: 07/22/18 17:10 Freq: Status: Active Protocol: Document 07/22/18 17:11 EA (Rec: 07/22/18 17:38 EA [id number]) Cervical Spine Range of Motion Cervical Spine Active Percentage Testing Position Sitting Flexion 80 Extension 80 Rotation Left 90 Rotation Right 90 Lateral Flexion Left 80 Lateral Flexion Right 80 ROM Limitations Soft Tissue Tightness Pain Lumbar Spine Range of Motion Lumbar Spine Active Percentage Flexion 100 Extension 50 Rotation Left 85 Rotation Right 85 Lateral Flexion Left 70 Lateral Flexion Right 70 ROM Limitations Soft Tissue Tightness Pain PT-OP-L Special Tests Start: 07/22/18 17:10 Freq: Status: Active Protocol: Document 07/22/18 17:11 EA (Rec: 07/22/18 17:38 EA [id number]) Special Tests Cervical Spine Special Tests Other- 1 Test Results + posterior quadrant for facets Vertebral Artery Test Results - Lumbar Spine Special Tests Other- 1 Test Results + posterior quadrant test ( facets) Prone Instability Test Test Results - Straight Leg Raise Test Results - PT-OP-M Strength Start: 07/22/18 17:10 Freq: Status: Active Protocol: Document 07/22/18 17:11 EA (Rec: 07/22/18 17:38 EA [id number]) Shoulder Strength Shoulder Manual Muscle Testing Right Reason Not Measured WFL Left Reason Not Measured WFL Hip Strength Hip Manual Muscle Testing Right Reason Not Measured WFL Left Reason Not Measured WFL Knee Strength Knee Manual Muscle Testing Right Reason Not Measured WFL Left Reason Not Measured WFL PT-OP-Q Treatments Start: 07/22/18 17:10 Freq: Status: Active Protocol: Document 07/29/18 17:00 HH (Rec: 07/29/18 18:03 HH [email or web address]) Therapeutic Exercises Supine Exercises posterior pelvic tilt Side bilateral Reps/Minutes 20 x2 Comments bridging position Sitting Exercises chin tuck Sitting Exercise Name chin tuck Side bilateral Reps/Minutes 20 x2 Standing Exercises standing pPT Side bilateral Reps/Minutes 20 x 2 Manual Therapy Treatment Soft Tissue Mobilization UT Mobilization Type Sustained Pressure Trigger Point Release Intensity/Depth Moderate Body Position Supine suboccipital Mobilization Type Strumming Sustained Pressure Trigger Point Release Intensity/Depth Moderate Body Position Supine Joint Mobilizations PA mob Joint C7 to T4 Direction PA Grade II Body Position Prone Comments facilitate extension moment Manual Traction cervical traction Body Position Supine Reps/Duration 10 secs hold x5 PT-OP-T Assessment and Plan Start: 07/22/18 17:10 Freq: Status: Active Protocol: Document 07/29/18 17:00 (Rec: 07/29/18 18:03 [email or web address]) Physical Therapy Assessment Assessment Summary Assessment Upon assessment, pt presents a Dowager's hump at C7T1 junction, along with signficant anterior pelvic tilt. Pt also presents significant loss of T/S extension, L/S flexion and hypermobile cervical joints. Today's tx focused on pt education on posture, chin tuck, PA mob for C7-T4 and PPT . Pt sammie tx very well and reports reduced neck pain. Physical Therapy Plan Next Visit Focus/Plan Next Note Type Treatment Note Next Visit Plan reassess HEP and posture awareness chin tuck T/S extension mobility L/S flexion mobility scap retraction
--- NOTE | 2018-08-05 18:12 | PT.OTN ---
Current Diagnoses Cervicalgia (08/05/18) Low back pain (08/05/18) Physical Therapy Treatment Note PT-OP-A Visit Information Start: 07/22/18 17:10 Freq: Status: Active Protocol: Document 08/05/18 16:45 HH (Rec: 08/05/18 18:12 HH [email or web address]) Out-Patient Physical Therapy Visit Information Visit Information Visit Type Treatment Note Visit Start Time 16:45 Visit Stop Time 17:30 Total Visit Minutes 45 Visit Number 3 Number of LEAK HUNTER Visits 0 PT-OP-B Current Condition Start: 07/22/18 17:10 Freq: Status: Active Protocol: Document 07/22/18 17:11 EA (Rec: 07/22/18 17:38 EA [id number]) Current Condition History of Current Condition Onset Date 6 months ago Current Complaints Localized lumbar and cervical pain History of Current Condition Patient reports present complaint of cervical and lumbar localized aching pain started > 10 years ago but was out of pain five years ago; states flared ups happens 6 months ago with no known reasons. 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 PT-OP-C Subjective Start: 07/22/18 17:10 Freq: Status: Active Protocol: Document 08/05/18 16:45 HH (Rec: 08/05/18 18:12 HH [email or web address]) OP-PT Subjective Patient Comments Patient Comments Im doing all my exercises, so far so good and my sleep seems to getting better over the weekend. i am more aware of my posture too now. PT-OP-G Mobility & Gait Start: 07/22/18 17:10 Freq: Status: Active Protocol: Document 07/22/18 17:11 EA (Rec: 07/23/18 07:23 EA [id number]) OP Gait Assessment Gait Gait Assistance Required: Independent Assistive Devices Assistive Device None Gait Deviations General Gait Pattern Within Normal Limits Comments Gait Comments Patient ambulates with no gait deviation noted PT-OP-J Posture/Palpation/Skin Start: 07/22/18 17:10 Freq: Status: Active Protocol: Document 07/22/18 17:38 EA (Rec: 07/22/18 17:40 EA [id number]) Posture Evaluation Position Standing Evaluation View ant/lat Head/C-Spine Posture Flexed L-Spine Posture Increased Lordosis Scapula Posture (L) Retracted Pelvis Posture Anteriorly Tilted Palpation Assessment Location One Palpation Findings Tenderness PT-OP-K Range of Motion Start: 07/22/18 17:10 Freq: Status: Active Protocol: Document 07/22/18 17:11 EA (Rec: 07/22/18 17:38 EA [id number]) Cervical Spine Range of Motion Cervical Spine Active Percentage Testing Position Sitting Flexion 80 Extension 80 Rotation Left 90 Rotation Right 90 Lateral Flexion Left 80 Lateral Flexion Right 80 ROM Limitations Soft Tissue Tightness Pain Lumbar Spine Range of Motion Lumbar Spine Active Percentage Flexion 100 Extension 50 Rotation Left 85 Rotation Right 85 Lateral Flexion Left 70 Lateral Flexion Right 70 ROM Limitations Soft Tissue Tightness Pain PT-OP-L Special Tests Start: 07/22/18 17:10 Freq: Status: Active Protocol: Document 07/22/18 17:11 EA (Rec: 07/22/18 17:38 EA [id number]) Special Tests Cervical Spine Special Tests Other- 1 Test Results + posterior quadrant for facets Vertebral Artery Test Results - Lumbar Spine Special Tests Other- 1 Test Results + posterior quadrant test ( facets) Prone Instability Test Test Results - Straight Leg Raise Test Results - PT-OP-M Strength Start: 07/22/18 17:10 Freq: Status: Active Protocol: Document 07/22/18 17:11 EA (Rec: 07/22/18 17:38 EA [id number]) Shoulder Strength Shoulder Manual Muscle Testing Right Reason Not Measured WFL Left Reason Not Measured WFL Hip Strength Hip Manual Muscle Testing Right Reason Not Measured WFL Left Reason Not Measured WFL Knee Strength Knee Manual Muscle Testing Right Reason Not Measured WFL Left Reason Not Measured WFL PT-OP-Q Treatments Start: 07/22/18 17:10 Freq: Status: Active Protocol: Document 08/05/18 16:45 HH (Rec: 08/05/18 18:12 [email or web address]) Therapeutic Exercises Supine Exercises T/S extension Side bilateral Equipment Used foam roll Reps/Minutes 20 x2 Comments from upper T/S to lower T/S posterior pelvic tilt Side bilateral Reps/Minutes 20 x2 Comments bridging position Sitting Exercises trunk ext + scap retraction Side bilateral Equipment Used against foam roller Reps/Minutes 10 x5 Comments isometric trunk extension with chin tuck + scap retraction towel mob with cervical arOM Side bilateral Equipment Used towel Reps/Minutes 10 x5 Comments towel PA mob on C7-T4 with cervical AROM chin tuck Sitting Exercise Name chin tuck Side bilateral Reps/Minutes 20 x2 Manual Therapy Treatment Soft Tissue Mobilization UT Mobilization Type Sustained Pressure Trigger Point Release Intensity/Depth Moderate Body Position Supine suboccipital Mobilization Type Strumming Sustained Pressure Trigger Point Release Intensity/Depth Moderate Body Position Supine Joint Mobilizations PA mob with C/S extension Joint C7 to T4 Grade III Body Position Sitting Comments with chin tuck cervical extension to facilitate extension moment PA mob Joint C7 to T4 Direction PA Grade II Body Position Prone Comments facilitate extension moment PT-OP-T Assessment and Plan Start: 07/22/18 17:10 Freq: Status: Active Protocol: Document 08/05/18 16:45 (Rec: 08/05/18 18:12 [email or web address]) Physical Therapy Assessment Assessment Summary Assessment Pt shows reduced pain symptoms today during PA mob, along with better understanding of her current condition. tx focused on PA & upward glide of C7-T4 segments, along with active cervical AROM. Pt c/o pinching and sharp pain during extension and rotation before assessment, but reports of significant decrease in pain after movements with mobilization. Physical Therapy Plan Next Visit Focus/Plan Next Note Type Treatment Note Next Visit Plan reassess HEP and posture awareness chin tuck upper T/S extension mobility L/S flexion mobility scap retraction
--- NOTE | 2018-08-19 17:35 | PT.OTN ---
Current Diagnoses Cervicalgia (08/19/18) Low back pain (08/19/18) Physical Therapy Treatment Note PT-OP-A Visit Information Start: 07/22/18 17:10 Freq: Status: Active Protocol: Document 08/19/18 16:50 DCW (Rec: 08/20/18 09:34 DC [id number]) Out-Patient Physical Therapy Visit Information Visit Information Visit Type Treatment Note Visit Start Time 16:50 Visit Stop Time 17:30 Total Visit Minutes 40 Visit Number 4 Number of HANDBOOK WRITER Visits 0 Evaluation Information Evaluation Date 07/22/18 PT-OP-B Current Condition Start: 07/22/18 17:10 Freq: Status: Active Protocol: Document 07/22/18 17:11 EA (Rec: 07/22/18 17:38 EA [id number]) Current Condition History of Current Condition Onset Date 6 months ago Current Complaints Localized lumbar and cervical pain History of Current Condition Patient reports present complaint of cervical and lumbar localized aching pain started > 10 years ago but was out of pain five years ago; states flared ups happens 6 months ago with no known reasons. 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 PT-OP-C Subjective Start: 07/22/18 17:10 Freq: Status: Active Protocol: Document 08/19/18 16:50 DCW (Rec: 08/20/18 09:34 DCW [id number]) OP-PT Subjective Patient Comments Patient Comments My neck has been getting better, but it has been really sore today. I don't really know why. PT-OP-G Mobility & Gait Start: 07/22/18 17:10 Freq: Status: Active Protocol: Document 07/22/18 17:11 EA (Rec: 07/23/18 07:23 EA [id number]) OP Gait Assessment Gait Gait Assistance Required: Independent Assistive Devices Assistive Device None Gait Deviations General Gait Pattern Within Normal Limits Comments Gait Comments Patient ambulates with no gait deviation noted PT-OP-J Posture/Palpation/Skin Start: 07/22/18 17:10 Freq: Status: Active Protocol: Document 07/22/18 17:38 EA (Rec: 07/22/18 17:40 EA [id number]) Posture Evaluation Position Standing Evaluation View ant/lat Head/C-Spine Posture Flexed L-Spine Posture Increased Lordosis Scapula Posture (L) Retracted Pelvis Posture Anteriorly Tilted Palpation Assessment Location One Palpation Findings Tenderness PT-OP-K Range of Motion Start: 07/22/18 17:10 Freq: Status: Active Protocol: Document 07/22/18 17:11 EA (Rec: 07/22/18 17:38 EA [id number]) Cervical Spine Range of Motion Cervical Spine Active Percentage Testing Position Sitting Flexion 80 Extension 80 Rotation Left 90 Rotation Right 90 Lateral Flexion Left 80 Lateral Flexion Right 80 ROM Limitations Soft Tissue Tightness Pain Lumbar Spine Range of Motion Lumbar Spine Active Percentage Flexion 100 Extension 50 Rotation Left 85 Rotation Right 85 Lateral Flexion Left 70 Lateral Flexion Right 70 ROM Limitations Soft Tissue Tightness Pain PT-OP-L Special Tests Start: 07/22/18 17:10 Freq: Status: Active Protocol: Document 07/22/18 17:11 EA (Rec: 07/22/18 17:38 EA [id number]) Special Tests Cervical Spine Special Tests Other- 1 Test Results + posterior quadrant for facets Vertebral Artery Test Results - Lumbar Spine Special Tests Other- 1 Test Results + posterior quadrant test ( facets) Prone Instability Test Test Results - Straight Leg Raise Test Results - PT-OP-M Strength Start: 07/22/18 17:10 Freq: Status: Active Protocol: Document 07/22/18 17:11 EA (Rec: 07/22/18 17:38 EA [id number]) Shoulder Strength Shoulder Manual Muscle Testing Right Reason Not Measured WFL Left Reason Not Measured WFL Hip Strength Hip Manual Muscle Testing Right Reason Not Measured WFL Left Reason Not Measured WFL Knee Strength Knee Manual Muscle Testing Right Reason Not Measured WFL Left Reason Not Measured WFL PT-OP-Q Treatments Start: 07/22/18 17:10 Freq: Status: Active Protocol: Document 08/19/18 16:50 DCW (Rec: 08/20/18 09:34 DC [id number]) Manual Therapy Treatment Soft Tissue Mobilization UT Mobilization Type Sustained Pressure Trigger Point Release Intensity/Depth Moderate Body Position Supine suboccipital Mobilization Type Strumming Sustained Pressure Trigger Point Release Intensity/Depth Moderate Body Position Supine Joint Mobilizations PA mob with C/S extension Joint C7 to T4 Grade III Body Position Prone Comments with chin tuck cervical extension to facilitate extension moment PA mob Joint C7 to T4 Direction PA Grade II Body Position Prone Comments facilitate extension moment Manual Traction cervical traction Body Position Supine Reps/Duration 10 secs hold x5 PT-OP-T Assessment and Plan Start: 07/22/18 17:10 Freq: Status: Active Protocol: Document 08/19/18 16:50 DCW (Rec: 08/20/18 09:34 [facility] [id number]) Physical Therapy Assessment Goals Three Impairment Impaired sleep time Longterm Goal (LTG) Patient will sleep more than 6 hours without bothering from neck and low back pain LTG Duration 4 wks Two Impairment Oswetry low back index score of 15/50 Caregivers Homecare Goal (LTG) Patient will have Oswetry score of <10/50 LTG Duration 4 wks One Impairment Neck disability index score 15 /50 Longterm Goal (LTG) Patient will have Neck disability score of < 10/50 LTG Duration 4 wks Assessment Summary Assessment Due to pt's increased complaints of pain today, focused on manual therapy to reduce muscle tone and improve cervical ROM. Pt noted improvement following session. Pt has been compliant with her HEP. Physical Therapy Plan Frequency and Duration Frequency of Treatment 2x/Week Duration of Treatment 8 wks Plan of Care Start Date 07/22/18 Plan of Care End Date 09/16/18 Next Visit Focus/Plan Next Note Type Treatment Note Next Visit Plan upper T/S extension mobility L/S flexion mobility scap retraction
--- NOTE | 2018-08-28 17:33 | PT.OTN ---
Current Diagnoses Cervicalgia (08/28/18) Low back pain (08/28/18) Physical Therapy Treatment Note PT-OP-A Visit Information Start: 07/22/18 17:10 Freq: Status: Active Protocol: Document 08/28/18 17:22 EA (Rec: 08/28/18 17:32 EA [id number]) Out-Patient Physical Therapy Visit Information Visit Information Visit Type Treatment Note Visit Start Time 16:50 Visit Stop Time 17:30 Total Visit Minutes 45 Visit Number 5 Number of REAL ESTATE CLOSER Visits 0 PT-OP-B Current Condition Start: 07/22/18 17:10 Freq: Status: Active Protocol: Document 07/22/18 17:11 EA (Rec: 07/22/18 17:38 EA [id number]) Current Condition History of Current Condition Onset Date 6 months ago Current Complaints Localized lumbar and cervical pain History of Current Condition Patient reports present complaint of cervical and lumbar localized aching pain started > 10 years ago but was out of pain five years ago; states flared ups happens 6 months ago with no known reasons. 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 PT-OP-C Subjective Start: 07/22/18 17:10 Freq: Status: Active Protocol: Document 08/28/18 17:22 EA (Rec: 08/28/18 17:32 EA [id number]) OP-PT Subjective Patient Comments Patient Comments Pt reports low back is hurting too much states rate about 7/ 10; denies LE numbness nutlocalized low back pain. PT-OP-G Mobility & Gait Start: 07/22/18 17:10 Freq: Status: Active Protocol: Document 07/22/18 17:11 EA (Rec: 07/23/18 07:23 EA [id number]) OP Gait Assessment Gait Gait Assistance Required: Independent Assistive Devices Assistive Device None Gait Deviations General Gait Pattern Within Normal Limits Comments Gait Comments Patient ambulates with no gait deviation noted PT-OP-J Posture/Palpation/Skin Start: 07/22/18 17:10 Freq: Status: Active Protocol: Document 07/22/18 17:38 EA (Rec: 07/22/18 17:40 EA [id number]) Posture Evaluation Position Standing Evaluation View ant/lat Head/C-Spine Posture Flexed L-Spine Posture Increased Lordosis Scapula Posture (L) Retracted Pelvis Posture Anteriorly Tilted Palpation Assessment Location One Palpation Findings Tenderness PT-OP-K Range of Motion Start: 07/22/18 17:10 Freq: Status: Active Protocol: Document 07/22/18 17:11 EA (Rec: 07/22/18 17:38 EA [id number]) Cervical Spine Range of Motion Cervical Spine Active Percentage Testing Position Sitting Flexion 80 Extension 80 Rotation Left 90 Rotation Right 90 Lateral Flexion Left 80 Lateral Flexion Right 80 ROM Limitations Soft Tissue Tightness Pain Lumbar Spine Range of Motion Lumbar Spine Active Percentage Flexion 100 Extension 50 Rotation Left 85 Rotation Right 85 Lateral Flexion Left 70 Lateral Flexion Right 70 ROM Limitations Soft Tissue Tightness Pain PT-OP-L Special Tests Start: 07/22/18 17:10 Freq: Status: Active Protocol: Document 07/22/18 17:11 EA (Rec: 07/22/18 17:38 EA [id number]) Special Tests Cervical Spine Special Tests Other- 1 Test Results + posterior quadrant for facets Vertebral Artery Test Results - Lumbar Spine Special Tests Other- 1 Test Results + posterior quadrant test ( facets) Prone Instability Test Test Results - Straight Leg Raise Test Results - PT-OP-M Strength Start: 07/22/18 17:10 Freq: Status: Active Protocol: Document 07/22/18 17:11 EA (Rec: 07/22/18 17:38 EA [id number]) Shoulder Strength Shoulder Manual Muscle Testing Right Reason Not Measured WFL Left Reason Not Measured WFL Hip Strength Hip Manual Muscle Testing Right Reason Not Measured WFL Left Reason Not Measured WFL Knee Strength Knee Manual Muscle Testing Right Reason Not Measured WFL Left Reason Not Measured WFL PT-OP-Q Treatments Start: 07/22/18 17:10 Freq: Status: Active Protocol: Document 08/28/18 17:22 EA (Rec: 08/28/18 17:32 EA [id number]) Therapeutic Exercises Supine Exercises 3 Supine Exercise Name Piriformis stretch Side bilateral Reps/Minutes x15SH x 2 reps 2 Supine Exercise Name SKTC Reps/Minutes x5SH x 3 reps each 1 Supine Exercise Name low trunk rota stretch Reps/Minutes x 15 sec hold x 2 Manual Therapy Treatment Soft Tissue Mobilization 1 Body Location Paralumabrs, upper gluteals, SI joint Mobilization Type Myofascial Release Rolling Sustained Pressure Trigger Point Release Intensity/Depth Moderate Body Position Prone UT Mobilization Type Sustained Pressure Trigger Point Release Intensity/Depth Moderate Body Position Supine PT-OP-R Modalities Start: 07/22/18 17:10 Freq: Status: Active Protocol: Document 08/28/18 17:22 EA (Rec: 08/28/18 17:32 EA [id number]) Electric Stimulation Electric Stimulation Interferential Current (IFC) Body Location pralumabrs, upper gluteals Intensity 15 Frequency 22 Patient Position Prone Combined With Heat/Cold Hot Pack PT-OP-T Assessment and Plan Start: 07/22/18 17:10 Freq: Status: Active Protocol: Document 08/28/18 17:22 EA (Rec: 08/28/18 17:32 EA [id number]) Physical Therapy Assessment Assessment Summary Assessment Tolerated treatment but difficulty during bed mobility due to pain. Recommends to cont. HEP and hot compress. Physical Therapy Plan Next Visit Focus/Plan Next Note Type Treatment Note
--- NOTE | 2018-09-02 17:29 | PT.OTN ---
Current Diagnoses Cervicalgia (09/02/18) Low back pain (09/02/18) Physical Therapy Treatment Note PT-OP-A Visit Information Start: 07/22/18 17:10 Freq: Status: Active Protocol: Document 09/02/18 16:45 DCW (Rec: 09/02/18 17:28 DCW [id number]) Out-Patient Physical Therapy Visit Information Visit Information Visit Type Treatment Note Visit Start Time 16:45 Visit Stop Time 17:40 Total Visit Minutes 55 Visit Number 6 Number of SOLE RUFFER Visits 0 Evaluation Information Evaluation Date 07/22/18 PT-OP-B Current Condition Start: 07/22/18 17:10 Freq: Status: Active Protocol: Document 07/22/18 17:11 EA (Rec: 07/22/18 17:38 EA [id number]) Current Condition History of Current Condition Onset Date 6 months ago Current Complaints Localized lumbar and cervical pain History of Current Condition Patient reports present complaint of cervical and lumbar localized aching pain started > 10 years ago but was out of pain five years ago; states flared ups happens 6 months ago with no known reasons. 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 PT-OP-C Subjective Start: 07/22/18 17:10 Freq: Status: Active Protocol: Document 09/02/18 16:45 DCW (Rec: 09/02/18 17:28 DCW [id number]) OP-PT Subjective Patient Comments Patient Comments Pt's neck and back are both very sore today, and have been since last week. Pt reports she saw Dr Harper yesterday, and they're going to try a steroid burst PT-OP-G Mobility & Gait Start: 07/22/18 17:10 Freq: Status: Active Protocol: Document 07/22/18 17:11 EA (Rec: 07/23/18 07:23 EA [id number]) OP Gait Assessment Gait Gait Assistance Required: Independent Assistive Devices Assistive Device None Gait Deviations General Gait Pattern Within Normal Limits Comments Gait Comments Patient ambulates with no gait deviation noted PT-OP-J Posture/Palpation/Skin Start: 07/22/18 17:10 Freq: Status: Active Protocol: Document 07/22/18 17:38 EA (Rec: 07/22/18 17:40 EA [id number]) Posture Evaluation Position Standing Evaluation View ant/lat Head/C-Spine Posture Flexed L-Spine Posture Increased Lordosis Scapula Posture (L) Retracted Pelvis Posture Anteriorly Tilted Palpation Assessment Location One Palpation Findings Tenderness PT-OP-K Range of Motion Start: 07/22/18 17:10 Freq: Status: Active Protocol: Document 07/22/18 17:11 EA (Rec: 07/22/18 17:38 EA [id number]) Cervical Spine Range of Motion Cervical Spine Active Percentage Testing Position Sitting Flexion 80 Extension 80 Rotation Left 90 Rotation Right 90 Lateral Flexion Left 80 Lateral Flexion Right 80 ROM Limitations Soft Tissue Tightness Pain Lumbar Spine Range of Motion Lumbar Spine Active Percentage Flexion 100 Extension 50 Rotation Left 85 Rotation Right 85 Lateral Flexion Left 70 Lateral Flexion Right 70 ROM Limitations Soft Tissue Tightness Pain PT-OP-L Special Tests Start: 07/22/18 17:10 Freq: Status: Active Protocol: Document 07/22/18 17:11 EA (Rec: 07/22/18 17:38 EA [id number]) Special Tests Cervical Spine Special Tests Other- 1 Test Results + posterior quadrant for facets Vertebral Artery Test Results - Lumbar Spine Special Tests Other- 1 Test Results + posterior quadrant test ( facets) Prone Instability Test Test Results - Straight Leg Raise Test Results - PT-OP-M Strength Start: 07/22/18 17:10 Freq: Status: Active Protocol: Document 07/22/18 17:11 EA (Rec: 07/22/18 17:38 EA [id number]) Shoulder Strength Shoulder Manual Muscle Testing Right Reason Not Measured WFL Left Reason Not Measured WFL Hip Strength Hip Manual Muscle Testing Right Reason Not Measured WFL Left Reason Not Measured WFL Knee Strength Knee Manual Muscle Testing Right Reason Not Measured WFL Left Reason Not Measured WFL PT-OP-Q Treatments Start: 07/22/18 17:10 Freq: Status: Active Protocol: Document 09/02/18 16:45 DCW (Rec: 09/02/18 17:28 DCW [id number]) Manual Therapy Treatment Soft Tissue Mobilization 1 Body Location Paralumabrs, upper gluteals, SI joint Mobilization Type Myofascial Release Rolling Sustained Pressure Trigger Point Release Intensity/Depth Moderate Body Position Prone UT Mobilization Type Sustained Pressure Trigger Point Release Intensity/Depth Moderate Body Position Supine suboccipital Mobilization Type Strumming Sustained Pressure Trigger Point Release Intensity/Depth Moderate Body Position Supine Joint Mobilizations PA mob with C/S extension Joint C7 to T4 Grade III Body Position Prone Comments with chin tuck cervical extension to facilitate extension moment PA mob Joint C7 to T4 Direction PA Grade II Body Position Prone Comments facilitate extension moment Manual Traction cervical traction Body Position Supine Reps/Duration 10 secs hold x5 PT-OP-R Modalities Start: 07/22/18 17:10 Freq: Status: Active Protocol: Document 09/02/18 16:45 DCW (Rec: 09/02/18 17:28 DCW [id number]) Electric Stimulation Electric Stimulation Interferential Current (IFC) Body Location pralumabrs, upper gluteals Intensity 15 Frequency 22 Patient Position Prone Combined With Heat/Cold Hot Pack PT-OP-T Assessment and Plan Start: 07/22/18 17:10 Freq: Status: Active Protocol: Document 09/02/18 16:45 DCW (Rec: 09/02/18 17:28 DCW [id number]) Physical Therapy Assessment Goals Three Impairment Impaired sleep time Mitten Stitcher Goal (LTG) Patient will sleep more than 6 hours without bothering from neck and low back pain LTG Duration 4 wks Two Impairment Oswetry low back index score of 15/50 Mitten Stitcher Goal (LTG) Patient will have Oswetry score of <10/50 LTG Duration 4 wks One Impairment Neck disability index score 15 /50 [facility] Goal (LTG) Patient will have Neck disability score of < 10/50 LTG Duration 4 wks Assessment Summary Assessment Pt felt improvement following today's session, noted less spasm in her neck and low back . Physical Therapy Plan Frequency and Duration Frequency of Treatment 2x/Week Duration of Treatment 8 wks Plan of Care Start Date 07/22/18 Plan of Care End Date 09/16/18 Next Visit Focus/Plan Next Note Type Treatment Note Next Visit Plan upper T/S extension mobility L/S flexion mobility scap retraction
--- NOTE | 2018-09-04 12:03 | PT.OTN ---
Current Diagnoses Cervicalgia (09/04/18) Low back pain (09/04/18) Physical Therapy Treatment Note PT-OP-A Visit Information Start: 07/22/18 17:10 Freq: Status: Active Protocol: Document 09/04/18 08:30 BS (Rec: 09/04/18 11:57 BS [id number]) Out-Patient Physical Therapy Visit Information Visit Information Visit Type Treatment Note Visit Start Time 07:30 Visit Stop Time 08:30 Total Visit Minutes 60 Visit Number 7 Number of FLEXO FOLDER GLUER OPERATOR Visits 0 Evaluation Information Evaluation Date 07/22/18 PT-OP-B Current Condition Start: 07/22/18 17:10 Freq: Status: Active Protocol: Document 07/22/18 17:11 EA (Rec: 07/22/18 17:38 EA [id number]) Current Condition History of Current Condition Onset Date 6 months ago Current Complaints Localized lumbar and cervical pain History of Current Condition Patient reports present complaint of cervical and lumbar localized aching pain started > 10 years ago but was out of pain five years ago; states flared ups happens 6 months ago with no known reasons. 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 PT-OP-C Subjective Start: 07/22/18 17:10 Freq: Status: Active Protocol: Document 09/04/18 08:30 BS (Rec: 09/04/18 11:57 BS [id number]) OP-PT Subjective Patient Comments Patient Comments Pt states that she had steroid burst, which has significantly reduced her low back and neck pain. She is not wanting to do exercises as she knows it will increase her pain. PT-OP-G Mobility & Gait Start: 07/22/18 17:10 Freq: Status: Active Protocol: Document 07/22/18 17:11 EA (Rec: 07/23/18 07:23 EA [id number]) OP Gait Assessment Gait Gait Assistance Required: Independent Assistive Devices Assistive Device None Gait Deviations General Gait Pattern Within Normal Limits Comments Gait Comments Patient ambulates with no gait deviation noted PT-OP-J Posture/Palpation/Skin Start: 07/22/18 17:10 Freq: Status: Active Protocol: Document 07/22/18 17:38 EA (Rec: 07/22/18 17:40 EA [id number]) Posture Evaluation Position Standing Evaluation View ant/lat Head/C-Spine Posture Flexed L-Spine Posture Increased Lordosis Scapula Posture (L) Retracted Pelvis Posture Anteriorly Tilted Palpation Assessment Location One Palpation Findings Tenderness PT-OP-K Range of Motion Start: 07/22/18 17:10 Freq: Status: Active Protocol: Document 07/22/18 17:11 EA (Rec: 07/22/18 17:38 EA [id number]) Cervical Spine Range of Motion Cervical Spine Active Percentage Testing Position Sitting Flexion 80 Extension 80 Rotation Left 90 Rotation Right 90 Lateral Flexion Left 80 Lateral Flexion Right 80 ROM Limitations Soft Tissue Tightness Pain Lumbar Spine Range of Motion Lumbar Spine Active Percentage Flexion 100 Extension 50 Rotation Left 85 Rotation Right 85 Lateral Flexion Left 70 Lateral Flexion Right 70 ROM Limitations Soft Tissue Tightness Pain PT-OP-L Special Tests Start: 07/22/18 17:10 Freq: Status: Active Protocol: Document 07/22/18 17:11 EA (Rec: 07/22/18 17:38 EA [id number]) Special Tests Cervical Spine Special Tests Other- 1 Test Results + posterior quadrant for facets Vertebral Artery Test Results - Lumbar Spine Special Tests Other- 1 Test Results + posterior quadrant test ( facets) Prone Instability Test Test Results - Straight Leg Raise Test Results - PT-OP-M Strength Start: 07/22/18 17:10 Freq: Status: Active Protocol: Document 07/22/18 17:11 EA (Rec: 07/22/18 17:38 EA [id number]) Shoulder Strength Shoulder Manual Muscle Testing Right Reason Not Measured WFL Left Reason Not Measured WFL Hip Strength Hip Manual Muscle Testing Right Reason Not Measured WFL Left Reason Not Measured WFL Knee Strength Knee Manual Muscle Testing Right Reason Not Measured WFL Left Reason Not Measured WFL PT-OP-Q Treatments Start: 07/22/18 17:10 Freq: Status: Active Protocol: Document 09/04/18 08:30 BS (Rec: 09/04/18 11:57 BS [email or web address]) Manual Therapy Treatment Soft Tissue Mobilization 1 Body Location Paralumabrs, upper gluteals, SI joint Mobilization Type Myofascial Release Rolling Sustained Pressure Trigger Point Release Intensity/Depth Moderate Body Position Prone UT Mobilization Type Sustained Pressure Trigger Point Release Intensity/Depth Moderate Body Position Supine suboccipital Mobilization Type Strumming Sustained Pressure Trigger Point Release Intensity/Depth Moderate Body Position Supine Joint Mobilizations 2 Joint L1-L5 Direction PA Grade III Body Position Sidelying Reps/Duration 4x45 1 Joint SI distraction Body Position Prone Reps/Duration 3x30 sec hold PA mob with C/S extension Joint C7 to T4 Grade III Body Position Prone Comments with chin tuck cervical extension to facilitate extension moment PA mob Joint C7 to T4 Direction PA Grade II Body Position Prone Comments facilitate extension moment Manual Traction Lumbar Body Position Supine Reps/Duration 3x1' hold Comments long axis distraction with sheet. cervical traction Body Position Supine Reps/Duration 20 secs hold x5 Manual Techniques 1 Type Upper Traps, Pecs Comments PROM stretching of B upper traps and pecs in hooklying. 2x30 hold each. PT-OP-R Modalities Start: 07/22/18 17:10 Freq: Status: Active Protocol: Document 09/04/18 08:30 BS (Rec: 09/04/18 11:57 BS [id number]) Electric Stimulation Electric Stimulation Interferential Current (IFC) Body Location pralumabrs, upper gluteals Intensity 15 Frequency 22 Patient Position Prone Combined With Heat/Cold Hot Pack PT-OP-T Assessment and Plan Start: 07/22/18 17:10 Freq: Status: Active Protocol: Document 09/04/18 08:30 BS (Rec: 09/04/18 11:57 BS [id number]) Physical Therapy Assessment Assessment Summary Assessment Pt reported improvements in her low back and cervical pain at end of session. She reports most benefit from manual therapy but would benefit from ther ex as tolerable for lumbar and cervical mobility. Physical Therapy Plan Frequency and Duration Frequency of Treatment 2x/Week Duration of Treatment 8 wks Plan of Care Start Date 07/22/18 Plan of Care End Date 09/16/18 Next Visit Focus/Plan Next Note Type Treatment Note Next Visit Plan Continue with manual therapy as needed, pt would benefit from light lumbar and cervical mobility pending pain levels.
--- NOTE | 2018-09-16 17:28 | PT.OTN ---
Current Diagnoses Cervicalgia (09/16/18) Low back pain (09/16/18) Physical Therapy Treatment Note PT-OP-A Visit Information Start: 07/22/18 17:10 Freq: Status: Active Protocol: Document 09/16/18 16:50 DCW (Rec: 09/16/18 17:28 DCW [id number]) Out-Patient Physical Therapy Visit Information Visit Information Visit Type Discharge Summary Visit Start Time 16:50 Visit Stop Time 17:30 Total Visit Minutes 40 Visit Number 8 Number of DIAGNOSTIC TECHNOLOGIST Visits 0 Evaluation Information Evaluation Date 07/22/18 PT-OP-B Current Condition Start: 07/22/18 17:10 Freq: Status: Active Protocol: Document 07/22/18 17:11 EA (Rec: 07/22/18 17:38 EA [id number]) Current Condition History of Current Condition Onset Date 6 months ago Current Complaints Localized lumbar and cervical pain History of Current Condition Patient reports present complaint of cervical and lumbar localized aching pain started > 10 years ago but was out of pain five years ago; states flared ups happens 6 months ago with no known reasons. 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 PT-OP-C Subjective Start: 07/22/18 17:10 Freq: Status: Active Protocol: Document 09/16/18 16:50 DCW (Rec: 09/16/18 17:28 DCW [id number]) OP-PT Subjective Patient Comments Patient Comments Pt reports she is doing much better overall, has all her home exercises, so she feels like she is pretty much done with this, and requests cancellation of her remaining appointments and discharge from skilled PT. Patient Questionnaires Neck Disability Index NDI Score 4/50 = 8% Neck Disability Index Impairment 1 to 19% Impaired (Score 1-9) Oswestry Low Back Index Oswestry Score 4/50 = 8% Oswestry Impairment 1 to 19% Impaired (Score 1-19) PT-OP-G Mobility & Gait Start: 07/22/18 17:10 Freq: Status: Active Protocol: Document 07/22/18 17:11 EA (Rec: 07/23/18 07:23 EA [id number]) OP Gait Assessment Gait Gait Assistance Required: Independent Assistive Devices Assistive Device None Gait Deviations General Gait Pattern Within Normal Limits Comments Gait Comments Patient ambulates with no gait deviation noted PT-OP-J Posture/Palpation/Skin Start: 07/22/18 17:10 Freq: Status: Active Protocol: Document 09/16/18 16:50 DCW (Rec: 09/16/18 16:54 DCW [id number]) Posture Evaluation Position Standing Head/C-Spine Posture Flexed T-Spine Posture Increased Kyphosis PT-OP-K Range of Motion Start: 07/22/18 17:10 Freq: Status: Active Protocol: Document 09/16/18 16:50 DCW (Rec: 09/16/18 16:54 DCW [id number]) Cervical Spine Range of Motion Cervical Spine Active Percentage Flexion 100 Extension 100 Rotation Left 100 Rotation Right 100 Lateral Flexion Left 95 Lateral Flexion Right 95 PT-OP-L Special Tests Start: 07/22/18 17:10 Freq: Status: Active Protocol: Document 09/16/18 16:50 DCW (Rec: 09/16/18 16:54 DCW [id number]) Special Tests Cervical Spine Special Tests Other- 1 Test Results - posterior quadrant for facets Vertebral Artery Test Results - Lumbar Spine Special Tests Other- 1 Test Results - posterior quadrant test ( facets) Prone Instability Test Test Results - Straight Leg Raise Test Results - PT-OP-M Strength Start: 07/22/18 17:10 Freq: Status: Active Protocol: Document 07/22/18 17:11 EA (Rec: 07/22/18 17:38 EA [id number]) Shoulder Strength Shoulder Manual Muscle Testing Right Reason Not Measured WFL Left Reason Not Measured WFL Hip Strength Hip Manual Muscle Testing Right Reason Not Measured WFL Left Reason Not Measured WFL Knee Strength Knee Manual Muscle Testing Right Reason Not Measured WFL Left Reason Not Measured WFL PT-OP-Q Treatments Start: 07/22/18 17:10 Freq: Status: Active Protocol: Document 09/16/18 16:50 DCW (Rec: 09/16/18 17:28 DCW [id number]) Manual Therapy Treatment Soft Tissue Mobilization UT Mobilization Type Sustained Pressure Trigger Point Release Intensity/Depth Moderate Body Position Supine suboccipital Mobilization Type Strumming Sustained Pressure Trigger Point Release Intensity/Depth Moderate Body Position Supine Joint Mobilizations PA mob with C/S extension Joint C7 to T4 Grade III Body Position Prone Comments with chin tuck cervical extension to facilitate extension moment PA mob Joint C7 to T4 Direction PA Grade II Body Position Prone Comments facilitate extension moment Manual Traction cervical traction Body Position Supine Reps/Duration 20 secs hold x5 Other Other Manual Treatments ROM/Postural measurements PT-OP-R Modalities Start: 07/22/18 17:10 Freq: Status: Active Protocol: Document 09/04/18 08:30 BS (Rec: 09/04/18 11:57 BS [id number]) Electric Stimulation Electric Stimulation Interferential Current (IFC) Body Location pralumabrs, upper gluteals Intensity 15 Frequency 22 Patient Position Prone Combined With Heat/Cold Hot Pack PT-OP-T Assessment and Plan Start: 07/22/18 17:10 Freq: Status: Active Protocol: Document 09/16/18 16:50 DCW (Rec: 09/16/18 17:28 DCW [id number]) Physical Therapy Assessment Goals Three Impairment Impaired sleep time Residential Goal (LTG) Patient will sleep more than 6 hours without bothering from neck and low back pain LTG Duration Met Two Impairment Oswetry low back index score of 15/50 Residential Goal (LTG) Patient will have Oswetry score of <10/50 LTG Duration 4 wks One Impairment Neck disability index score 15 /50 Residential Goal (LTG) Patient will have Neck disability score of < 10/50 LTG Duration Met Assessment Summary Assessment Pt has met all goals, reports she is prepared to transition to her independent HEP and is ready for discharge. Therapist is in agreement. Physical Therapy Plan Frequency and Duration Frequency of Treatment 2x/Week Duration of Treatment 8 wks Plan of Care Start Date 07/22/18 Plan of Care End Date 09/16/18 Discharge Physical Therapy Discharge Reasons Patient Request Discharge Comments Goals met Next Visit Focus/Plan Next Note Type Discharge Summary
== END 2018-10-30 11:29 | disposition home or self-care (01) ==
LOC: PHYS 16:45
PROVIDERS: Family Provider Nurse Practitioner Psychiatric/Mental Health; PCP Family Medicine; Visit Provider Family Medicine
DX: M54.2 Cervicalgia (principal); M54.5 Low back pain
CPT/HCPCS: 97014; 97110; 97140; 97162; 97535; G0283

== ENCOUNTER → 2018-10-14 06:59 | Outpatient (CLI) | payer OTHER, SELFPAY ==
[2018-10-14 10:06] LABS: Thyroid Stimulating Hormone 5.17 uIU/mL (0.47-4.68)
[2018-10-14 10:23] LABS: Hep C Virus Ab w/Reflex Quant NEGATIVE s/c (NEGATIVE)
== END ==
PROVIDERS: Family Provider Family Medicine; PCP Family Medicine; Visit Provider Family Medicine
DX: E03.9 Hypothyroidism, unspecified (principal); Z11.59 Encounter for screening for other viral diseases
CPT/HCPCS: 36415; 84443; 86803

== ENCOUNTER → 2018-10-30 10:20 | Outpatient (CLI) | payer OTHER, SELFPAY | PROVIDERS: Family Provider Family Medicine; PCP Family Medicine; Visit Provider Family Medicine ==

== ENCOUNTER → 2018-11-04 07:01 | Outpatient (CLI) | payer OTHER, SELFPAY ==
[2018-11-04 09:40] LABS: Adenovirus F 40/41 Not Detected (Not Detect); Astrovirus Not Detected (Not Detect); Campylobacter Not Detected (Not Detect); Clostridium difficile toxin AB Not Detected (Not Detect); Cryptosporidium Not Detected (Not Detect); Cyclospora cayetanensis Not Detected (Not Detect); Entamoeba histolytica Not Detected (Not Detect); Enteroaggregative E.coli Not Detected (Not Detect); Enteropathogenic E.coli Not Detected (Not Detect); Enterotoxigenic E.coli It/st Not Detected (Not Detect); Giardia lamblia Not Detected (Not Detect); Norovirus GI/GII Not Detected (Not Detect); Plesiomonsa shigelloides Not Detected (Not Detect); Rotavirus A Not Detected (Not Detect); Salmonella Not Detected (Not Detect); Shiga-like toxin-prod E.coli Not Detected (Not Detect); Shigella/Enteroinvasive E.coli Not Detected (Not Detect); Vibrio Not Detected (Not Detect); Vibrio cholerae Not Detected (Not Detect); Yersinia enterocolitica Not Detected (Not Detect)
== END ==
PROVIDERS: PCP Family Medicine; Visit Provider Family Medicine
DX: K52.9 Noninfective gastroenteritis and colitis, unspecified (principal)
CPT/HCPCS: 87177; 87507

== ENCOUNTER → 2018-12-09 07:19 | Outpatient (CLI) | payer OTHER, SELFPAY | PROVIDERS: PCP Family Medicine; Visit Provider Family Medicine | DX: E03.9 Hypothyroidism, unspecified (principal) | CPT/HCPCS: 36415; 84443 ==

== ENCOUNTER → 2019-02-03 12:42 | Outpatient (CLI) | payer OTHER, SELFPAY ==
--- NOTE | 2019-02-03 12:44 | DI.US.S_ITS ---
ULTRASOUND OF RIGHT BREAST: 02/03/2019 CLINICAL: Palpable right breast lump. Comparison is made to exams dated: 02/03/2019 mammogram, 08/26/2018 mammogram, 03/27/2017 mammogram, 09/25/2016 ultrasound, 09/25/2016 mammogram, and 09/14/2016 mammogram - [facility]. Color flow and real-time ultrasound of the right breast were performed on the areas of interest. There is a 0.6 cm x 0.3 cm x 0.6 cm oval cyst in the right breast at 3 o'clock middle depth. This oval cyst is hypoechoic with a well-defined boundary, internal echoes, and posterior acoustic enhancement. This likley correlates with mammography findings. Color flow imaging demonstrates that there is no vascularity present. IMPRESSION: PROBABLY BENIGN The 0.6 cm x 0.3 cm x 0.6 cm oval complicated cyst in the right breast is probably benign. Follow-up mammogram and ultrasound in 6 months is recommended. There is no abnormality seen in the right breast to correspond with the palpable abnormality in the upper outer quadrant, however, clinical followup is recommended. A follow-up mammogram and an ultrasound in 6 months is recommended to demonstrate stability. This exam was interpreted at Station ID: [id number]. Electronically Signed By: Alcides vo/:02/03/2019 14:48:45 letter sent: Followup Recommended Ultrasound BI-RADS: 3 Probably benign
--- NOTE | 2019-02-03 12:44 | DI.MG.S_ITS ---
UNILATERAL RIGHT DIGITAL DIAGNOSTIC MAMMOGRAM 3D/2D: 02/03/2019 CLINICAL: Right breast lump. Comparison is made to exams dated: 08/26/2018 mammogram, 03/27/2017 mammogram, and 09/25/2016 mammogram - [facility]. The tissue of right breast is heterogeneously dense. This may lower the sensitivity of mammography. There is an oval low density focal asymmetry with an indistinct margin in the right breast at 5 o'clock middle depth. No other significant masses or calcifications are seen in the breast. IMPRESSION: INCOMPLETE: NEEDS ADDITIONAL IMAGING EVALUATION The oval low density focal asymmetry in the right breast is indeterminate. An ultrasound is recommended. There is no abnormality seen in the right breast to correspond with the palpable abnormality in the upper outer quadrant, however, ultrasound is recommended. This exam was interpreted at Station ID: [id number]. NOTE: For mammograms, a report in lay terms will be sent to the patient. Approximately 15% of breast malignancies will not be visualized mammographically. In the management of a palpable breast mass, a negative mammogram must not discourage biopsy of a clinically suspicious lesion. Electronically Signed By: Alcides vo/sy:02/03/2019 13:55:26 copy to: Cande NEWMAN [facility] copy to: VIJAYA APONTE BI-RADS Category 0: Incomplete [id number]
== END ==
PROVIDERS: Family Provider Family Medicine; PCP Family Medicine; Visit Provider Obstetrics & Gynecology
DX: R92.8 Other abnormal and inconclusive findings on diagnostic imaging of breast (principal); N60.01 Solitary cyst of right breast
CPT/HCPCS: 76642; 77065; G0279

== ENCOUNTER → 2019-02-12 17:08 | Outpatient (CLI) | payer OTHER, SELFPAY | PROVIDERS: PCP Family Medicine | DX: Z23 Encounter for immunization (principal) | CPT/HCPCS: 90471; 90686 ==

== ENCOUNTER → 2019-02-23 06:44 | Outpatient (CLI) | payer OTHER, SELFPAY ==
--- NOTE | 2019-02-23 08:42 | DI.CT.S_ITS ---
PROCEDURE: CT ABDOMEN PELVIS W CON INDICATIONS: Diarrhea, unspecified TECHNIQUE: After the administration of oral and intravenous contrast, 5 mm thick sections acquired from the diaphragms to the symphysis. 5 mm thick coronal and sagittal reformats were performed. For radiation dose reduction, the following was used: automated exposure control, adjustment of mA and/or kV according to patient size. COMPARISON: CT pulmonary angiogram 01/09/2008. FINDINGS: Image quality: Excellent. ABDOMEN: Lung bases: Lung bases are clear. Heart size is normal. Solid organs: Liver is normal in size. Heterogeneous low-attenuation of the liver most consistent with steatosis. Gallbladder is unremarkable. Biliary system is non-dilated. Pancreas enhances normally. Spleen is normal in size and enhancement. No adrenal nodules. Kidneys are normal in size and enhancement, without hydronephrosis. Peritoneum and bowel: Stomach, small bowel, and colon loops are normal in caliber and wall thickness. No abnormal enhancement identified. Liquid stool contents in the distal colon. No free fluid or air. Nodes and vessels: No retroperitoneal or mesenteric adenopathy. Aorta and inferior vena cava are normal in caliber. Miscellaneous: No ventral hernias. PELVIS: Genitourinary: Bladder is decompressed. Uterus is surgically absent. Miscellaneous: No inguinal hernias or adenopathy. Bones: No suspicious bony lesions. No vertebral body compression fractures. IMPRESSION: 1. No acute inflammatory process or abnormal enhancement identified. 2. Liquid stool contents in the distal colon in keeping with diarrhea. 3. Hepatic steatosis. Dictated by: Sebastian Casey M.D. on 02/23/2019 at 9:34 Approved by: Sebastian Casey M.D. on 02/23/2019 at 9:42
== END ==
PROVIDERS: PCP Family Medicine; Visit Provider Family Medicine
DX: R19.7 Diarrhea, unspecified (principal); K76.0 Fatty (change of) liver, not elsewhere classified
CPT/HCPCS: 74177; Q9967

== ENCOUNTER → 2019-03-30 18:28 | Outpatient (CLI) | payer OTHER, SELFPAY ==
--- NOTE | 2019-03-30 18:30 | DI.MRI.S_ITS ---
PROCEDURE: MR LUMBAR SPINE WO CON INDICATIONS: Back pain TECHNIQUE: Noncontrast sagittal T1 spin echo and T2 fast echo, sagittal STIR, axial T1 and T2 fast spin echo through the lumbar spine. In cases with scoliosis, additional coronal T2 fast spin echo may be performed. COMPARISON: [facility], MR, L-SPINE WITHOUT CONTRAST, 08/14/2006, 7:53. [facility], MR, C-SPINE WITHOUT CONTRAST, 08/03/2016, 17:08. [facility], MR, MR LUMBAR SPINE WO CON, 04/23/2018, 7:29. [facility], MR, MR CERVICAL SPINE WO CON, 03/30/2019, 18:39. FINDINGS: Image quality: Diagnostic Alignment and Curvature: There is normal bony alignment. Bone Marrow: Marrow is of normal overall signal. No acute vertebral body compression fractures. Spinal Cord: Conus medullaris terminates at the L1 level. Visualized cord demonstrates normal signal and size. Paraspinous Soft Tissues: No paravertebral masses. T12-L1: Normal appearance. L1-L2: Normal appearance. L2-L3: Mild loss of disc height is seen. Loss of disc signal is seen. Mild generalized disc bulge is seen. No significant neural foraminal narrowing seen. Stable from the prior study. L3-L4: The disc height is well-preserved. Loss of disc signal is seen at this level. Mild generalized disc bulge is seen. No significant neural foraminal or central canal narrowing can be seen. Stable from the prior study. L4-L5: Mild loss of disc height is seen. Loss of disc signal is seen. Reactive marrow endplate changes are seen which are hypointense on T1-weighted imaging and hyperintense on T2 weighted imaging, which is most consistent with edema (Modic type I changes). Moderate generalized disc bulge is seen. Moderate facet joint hypertrophy is seen. Fluid is seen within the facet joints themselves. Mild bilateral neural foraminal narrowing is seen. There is at least moderate central canal narrowing seen, which is exacerbated by prominent epidural fat. These degenerative changes have clearly progressed compared to the prior MRI. L5-S1: The disc height is well-preserved. Loss of disc signal is seen at this level. Minimal disc bulge is seen. Mild facet joint hypertrophy is seen. No significant neural foraminal or central canal narrowing can be seen. Stable from the prior study. IMPRESSION: Lumbar spine degenerative changes are seen, which are most prominent at the L4-L5 level. The degenerative change at this level has clearly progressed compared to the prior MRI dated 04/23/18. Dictated by: José Luis Ta M.D. on 03/31/2019 at 8:39 Approved by: José Luis Ta M.D. on 03/31/2019 at 8:46
--- NOTE | 2019-03-30 18:30 | DI.MRI.S_ITS ---
PROCEDURE: MR CERVICAL SPINE WO CON INDICATIONS: Neck pain TECHNIQUE: Noncontrast sagittal T1 spin echo and T2 fast spin echo, sagittal STIR, foraminal oblique sagittal T2 fast spin echo, and axial gradient echo or T2 fast spin echo through the cervical spine. COMPARISON: [facility], CR, CERVICAL SPINE 2 OR 3 VIEWS, 09/12/2016, 11:15. [facility], MR, C-SPINE WITHOUT CONTRAST, 07/16/2006, 8:02. [facility], CR, XR CERVICAL SPINE 6+ VIEWS, 03/24/2019, 8:25. FINDINGS: Image quality: Excellent. Alignment and Curvature: There is trace C4-C5 anterolisthesis. Bone Marrow: There minimal reactive endplate changes adjacent to the C4-C5, C5-C6 and C6-C7 discs. Spinal Cord: Visualized spinal cord has normal size and signal. No cerebellar tonsillar herniation. Paraspinous Soft Tissues: No paravertebral masses. Prevertebral soft tissues are normal in thickness. C2-C3: Loss of the signal. Mild right facet hypertrophy. No central stenosis. Mild right neural foraminal narrowing. No neural compression. C3-C4: Loss of disc signal and slight loss of disc height. Mild, diffuse disc bulge. Mild bilateral facet hypertrophy. Mild narrowing of the central canal. Mild bilateral uncovertebral joint hypertrophy. Severe right and mild left neural foraminal narrowing with compression of the exiting right C4 nerve root. C4-C5: Loss of disc signal and height. Mild, diffuse disc bulge. Mild right and moderate left facet hypertrophy. Mild bilateral uncovertebral joint hypertrophy. Mild narrowing of the central canal. Moderate right and severe left neural foraminal narrowing with compression of the exiting left C5 nerve root. C5-C6: Loss of the signal and height. Mild, diffuse disc bulge. Small right central disc protrusion. Mild bilateral facet hypertrophy. Moderate bilateral uncovertebral joint hypertrophy. Moderate to severe narrowing of the central canal. Severe bilateral neural foraminal narrowing and compression of the exiting C6 nerve roots. C6-C7: Loss of disc signal and height. Mild, diffuse disc bulge. Mild bilateral facet hypertrophy. Mild bilateral uncovertebral joint hypertrophy. Mild narrowing of the central canal. Moderate bilateral neural foraminal narrowing. No neural compression. C7-T1: Loss of disc signal. Mild, diffuse disc bulge. Mild bilateral facet hypertrophy. No central stenosis. No neural foraminal narrowing. No neural compression. IMPRESSION: 1. Multilevel degenerative disc disease. 2. Multilevel facet arthropathy. 3. Moderate to severe C5-C6 central canal narrowing. Mild C3-C4, C4-C5 and C6-C7 centrally. 4. Severe bilateral C5-C6 neural foraminal narrowing. Moderate right and severe left C4-C5 neural foraminal narrowing. Severe right and mild left C3-C4 neural foraminal narrowing. Moderate bilateral C6-C7 neural foraminal narrowing. Mild right C2-C3 neural foraminal narrowing. 5. Compression of the exiting right C4 nerve root, exiting left C5 nerve root and exiting bilateral C6 nerve root secondary to neural foraminal narrowing. Dictated by: Shereen Holloway MD, PhD on 03/31/2019 at 15:54 Approved by: Shereen Holloway MD, PhD on 03/31/2019 at 16:11
== END ==
PROVIDERS: PCP Family Medicine; Visit Provider Family Medicine
DX: M54.5 Low back pain (principal); M47.816 Spondylosis without myelopathy or radiculopathy, lumbar region; M47.812 Spondylosis without myelopathy or radiculopathy, cervical region; M50.31 Other cervical disc degeneration, high cervical region; M48.02 Spinal stenosis, cervical region
CPT/HCPCS: 72141; 72148

== ENCOUNTER → 2019-08-14 10:19 | Outpatient (CLI) | payer OTHER, SELFPAY ==
--- NOTE | 2019-08-14 | DI.MG.S_ITS ---
BILATERAL DIGITAL DIAGNOSTIC MAMMOGRAM 3D/2D SHORT-TERM FOLLOW-UP: 08/14/2019 CLINICAL: Short term follow up right breast, due bilateral. Comparison is made to exams dated: 02/03/2019 mammogram, 08/26/2018 mammogram, and 03/27/2017 mammogram - [facility]. The tissue of both breasts is heterogeneously dense. This may lower the sensitivity of mammography. There is an oval low density focal asymmetry with an obscured and circumscribed margin in the right breast at 5 o'clock middle depth. This is not significantly changed. There also is a 3 cm irregular equal density focal asymmetry with an indistinct and circumscribed margin in the right breast at 1 o'clock posterior depth. No other significant masses, calcifications, or other findings are seen in either breast. IMPRESSION: INCOMPLETE: NEEDS ADDITIONAL IMAGING EVALUATION The oval low density focal asymmetry in the right breast at 5 o'clock middle depth is indeterminate. An ultrasound is recommended. The 3 cm irregular equal density focal asymmetry in the right breast at 1 o'clock posterior depth is indeterminate. An ultrasound is recommended. This exam was interpreted at Station ID: [id number]. NOTE: For mammograms, a report in lay terms will be sent to the patient. Approximately 15% of breast malignancies will not be visualized mammographically. In the management of a palpable breast mass, a negative mammogram must not discourage biopsy of a clinically suspicious lesion. Electronically Signed By: Alcides vo/sy:08/14/2019 11:31:23 copy to: Cande NEWMAN [facility] ACR BI-RADS Category 0: Incomplete 3340F
--- NOTE | 2019-08-14 10:21 | DI.US.S_ITS ---
LIMITED ULTRASOUND OF RIGHT BREAST: 08/14/2019 CLINICAL: Follow up on right breast mass with suspected new mass and palpable area. Comparison is made to exams dated: 02/03/2019 ultrasound, 02/03/2019 mammogram, 08/26/2018 mammogram, 03/27/2017 mammogram, 09/25/2016 ultrasound, and 09/14/2016 mammogram - [facility]. Color flow and real-time ultrasound of the right breast upper inner quadrant were performed on the areas of interest. There is a 0.5 cm x 0.2 cm x 0.4 cm oval cyst in the right breast at 3 o'clock middle depth. This oval cyst is hypoechoic with a well-defined boundary and internal echoes. This abnormality is not significantly changed and correlates with mammography findings. Color flow imaging demonstrates that there is no vascularity present. There also is a cluster of dilated ducts in the right breast at 1 o'clock posterior depth. This cluster of dilated ducts is of mixed echogenicity with internal echoes. This correlates with mammography findings. Color flow imaging demonstrates that there is no vascularity present. IMPRESSION: PROBABLY BENIGN The 0.5 cm x 0.2 cm x 0.4 cm oval cyst in the right breast at 3 o'clock middle depth is consistent with a complicated cyst and is probably benign. Follow-up mammogram and ultrasound in 6 months are recommended. The cluster of dilated ducts in the right breast at 1 o'clock posterior depth likely represents duct ectasia and is probably benign. Follow-up mammogram and ultrasound in 6 months are recommended. A follow-up mammogram and an ultrasound in 6 months are recommended to demonstrate stability. Patient will also be due for a screening mammogram of the left breast at that time. This exam was interpreted at Station ID: [id number]. Electronically Signed By: Alcides Hilton M.D. ddhernan/:08/14/2019 11:58:48 copy to: Syed KAUR [facility] letter sent: Followup Recommended Ultrasound BI-RADS: 3 Probably benign
== END ==
PROVIDERS: PCP Family Medicine; Referring Provider Family Medicine; Visit Provider Obstetrics & Gynecology
DX: R92.8 Other abnormal and inconclusive findings on diagnostic imaging of breast (principal); N60.01 Solitary cyst of right breast; N60.41 Mammary duct ectasia of right breast
CPT/HCPCS: 76642; 77066; G0279

== ENCOUNTER → 2019-09-10 08:55 | Outpatient (CLI) | payer OTHER, SELFPAY ==
[2019-09-10 10:46] LABS: Add Manual Diff / Slide Review NO; Basophils Absolute Auto 0 /uL (0-100); Basophils Percent Auto 0.4 % (0-2); Eosinophils Absolute Auto 200 /uL (0-450); Eosinophils Percent Auto 1.9 % (2-4); Hematocrit 38.6 % (36-46); Hemoglobin 13.2 g/dL (12.0-16.0); Lymphocytes Absolute Auto 3700 /uL (1100-4500); Lymphocytes Percent Auto 43.4 % (25-40); Mean Corpuscular HGB Conc 34.1 % (30-36); Mean Corpuscular Volume 93.8 fL (80-100); Monocytes Absolute Auto 1100 /uL (0-900); Monocytes Percent Auto 13.1 % (3-14); Neutrophils Absolute Auto 3500 /uL (1500-7000); Neutrophils Percent Auto 41.2 % (50-75); Platelet Count 340 X10^3/uL (150-400); Red Blood Cell Count 4.12 X10^6/uL (4.0-5.2); Red Cell Distribution Width 12.8 % (11.6-14.8); White Blood Cell Count 8.6 X10^3/uL (4.5-11.0)
[2019-09-10 10:50] LABS: Alanine Aminotransferase 29 IU/L (<35); Albumin Globulin Ratio 1.4 (1.0-2.8); Alkaline Phosphatase 58 U/L (38-126); Aspartate Aminotransferase 25 IU/L (14-36); BUN Creatinine Ratio 28.4 (6-22); Bilirubin Total 0.3 mg/dL (0.2-1.3); Blood Urea Nitrogen 29 mg/dL (7-17); Calcium 10.2 mg/dL (8.4-10.2); Carbon Dioxide 25 mmol/L (22-32); Chloride 102 mmol/L (98-107); Estimated Glomerular Filt Rate 55.1 mL/min (>60); Globulin 2.9 g/dL (1.7-4.1); Glucose 101 mg/dL (80-110); HEMOLYSIS < 15 (0-50); Sodium 135 mmol/L (137-145); Total Protein 6.9 g/dL (6.3-8.2)
[2019-09-10 10:53] LABS: Potassium 5.7 mmol/L (3.4-5.1)
[2019-09-10 11:21] LABS: TSH w/ Reflex to FT4 2.59 uIU/mL (0.47-4.68)
== END ==
PROVIDERS: PCP Family Medicine; Referring Provider Family Medicine; Visit Provider Family Medicine
DX: K12.1 Other forms of stomatitis (principal); R19.7 Diarrhea, unspecified; R53.83 Other fatigue
CPT/HCPCS: 36415; 80053; 84443; 85025

== ENCOUNTER → 2019-09-14 11:34 | Outpatient (CLI) | payer OTHER, SELFPAY ==
[2019-09-14 13:03] LABS: BUN Creatinine Ratio 26.9 (6-22); Blood Urea Nitrogen 21 mg/dL (7-17); Calcium 9.7 mg/dL (8.4-10.2); Carbon Dioxide 23 mmol/L (22-32); Chloride 107 mmol/L (98-107); Estimated Glomerular Filt Rate > 60.0 mL/min (>60); Glucose 98 mg/dL (80-110); HEMOLYSIS < 15 (0-50); Potassium 5.1 mmol/L (3.4-5.1); Sodium 137 mmol/L (137-145)
== END ==
PROVIDERS: PCP Family Medicine; Referring Provider Family Medicine; Visit Provider Family Medicine
DX: E87.5 Hyperkalemia (principal)
CPT/HCPCS: 36415; 80048

== ENCOUNTER → 2019-11-12 13:21 | Outpatient (CLI) | payer OTHER, SELFPAY ==
[2019-11-12 15:53] LABS: HEMOLYSIS 20 (0-50); Potassium 4.6 mmol/L (3.4-5.1)
[2019-11-12 15:58] LABS: BUN Creatinine Ratio 20.3 (6-22); Blood Urea Nitrogen 16 mg/dL (7-17); Calcium 9.4 mg/dL (8.4-10.2); Carbon Dioxide 25 mmol/L (22-32); Chloride 102 mmol/L (98-107); Estimated Glomerular Filt Rate > 60.0 mL/min (>60); Glucose 151 mg/dL (80-110); HEMOLYSIS 24 (0-50); Potassium 4.6 mmol/L (3.4-5.1); Sodium 134 mmol/L (137-145)
== END ==
PROVIDERS: PCP Family Medicine; Referring Provider Family Medicine; Visit Provider Family Medicine
DX: E87.5 Hyperkalemia (principal); I10 Essential (primary) hypertension
CPT/HCPCS: 36415; 80048; 84132

== ENCOUNTER → 2020-02-22 02:28 | Outpatient (CLI) | payer OTHER, SELFPAY | PROVIDERS: PCP Family Medicine; Referring Provider Internal Medicine; Visit Provider Internal Medicine | DX: Z23 Encounter for immunization (principal) | CPT/HCPCS: 90471; 90686 ==

== ENCOUNTER → 2020-02-26 09:31 | Outpatient (CLI) | payer OTHER, SELFPAY ==
--- NOTE | 2020-02-26 09:32 | DI.US.S_ITS ---
LIMITED ULTRASOUND OF RIGHT BREAST AND AXILLA: 02/26/2020 CLINICAL: Patient returns today for six month follow up to evaluate two focal asymmetries in the right breast. Comparison is made to exams dated: 02/26/2020 mammogram, 08/14/2019 ultrasound, 08/14/2019 mammogram, 02/03/2019 ultrasound, 08/26/2018 mammogram, and 02/03/2019 mammogram - [facility]. Color flow and real-time ultrasound of the right breast upper inner quadrant and axilla regions were performed. Lundberg scale images of the real-time examination were reviewed. There is a 0.6 cm x 0.3 cm x 0.7 cm oval cyst in the right breast at 3 o'clock middle depth 3 cm from the nipple. This oval cyst is hypoechoic with a well-defined boundary and internal echoes. This abnormality is not significantly changed and correlates with mammography findings. Color flow imaging demonstrates that there is no vascularity present. There also is a cluster of dilated ducts in the right breast at 1 o'clock posterior depth. This cluster of dilated ducts is of mixed echogenicity with internal echoes. These abnormalities are not significantly changed and correlates with mammography findings. Color flow imaging demonstrates that there is no vascularity present. IMPRESSION: PROBABLY BENIGN The 0.6 cm x 0.3 cm x 0.7 cm oval cyst in the right breast at 3 o'clock middle depth is consistent with a complicated cyst and is probably benign. The cluster of dilated ducts in the right breast at 1 o'clock posterior depth likely represents duct ectasia and is probably benign. A follow-up right mammogram and right ultrasound in 6 months is recommended to demonstrate continued stability. The patient will also be due for screening mammogram of the contralateral breast at that time. Findings and recommendations were conveyed to the patient during today's evaluation. This exam was interpreted at Station ID: [id number]. Electronically Signed By: Sushant Dyson M.D. aty/:02/26/2020 12:57:45 copy to: Cande NEWMAN [facility] letter sent: Followup Recommended Ultrasound BI-RADS: 3 Probably benign
--- NOTE | 2020-02-26 09:32 | DI.MG.S_ITS ---
UNILATERAL RIGHT DIGITAL DIAGNOSTIC MAMMOGRAM 3D/2D SHORT-TERM FOLLOW-UP: 02/26/2020 CLINICAL: Short term follow up of the right breast. Comparison is made to exams dated: 08/14/2019 mammogram, 02/03/2019 mammogram, 08/26/2018 mammogram, 08/14/2019 ultrasound, 08/25/2012 mammogram, and 03/27/2017 mammogram - [facility]. The tissue of right breast is heterogeneously dense. This may lower the sensitivity of mammography. There is an oval low density focal asymmetry with an obscured and circumscribed margin in the right breast at 5 o'clock middle depth. This is not significantly changed. There also is a 3 cm irregular equal density focal asymmetry with an indistinct and circumscribed margin in the right breast at 1 o'clock posterior depth. This is not significantly changed. No other significant masses or calcifications are seen in the breast. IMPRESSION: INCOMPLETE: NEEDS ADDITIONAL IMAGING EVALUATION The oval low density focal asymmetry in the right breast at 5 o'clock middle depth is indeterminate. An ultrasound is recommended for further evaluation and is scheduled to immediately follow this examination. The 3 cm irregular equal density focal asymmetry in the right breast at 1 o'clock posterior depth is indeterminate. An ultrasound is recommended for further evaluation and is scheduled to immediately follow this examination. This exam was interpreted at Station ID: [id number]. NOTE: For mammograms, a report in lay terms will be sent to the patient. Approximately 15% of breast malignancies will not be visualized mammographically. In the management of a palpable breast mass, a negative mammogram must not discourage biopsy of a clinically suspicious lesion. Electronically Signed By: Sushant Dyson M.D. aty/:02/26/2020 12:53:25 copy to: Cande NEWMAN [facility] ACR BI-RADS Category 0: Incomplete 3340F
== END ==
PROVIDERS: PCP Family Medicine; Referring Provider Family Medicine; Visit Provider Family Medicine
DX: R92.8 Other abnormal and inconclusive findings on diagnostic imaging of breast (principal); N64.89 Other specified disorders of breast; N60.01 Solitary cyst of right breast
CPT/HCPCS: 76642; 77065; G0279

== ENCOUNTER → 2021-03-27 16:39 | Outpatient (CLI) | payer OTHER, SELFPAY ==
[2021-03-27 17:13] LABS: COVID19 -Nasal RAPID Negative (Negative)
== END ==
PROVIDERS: Visit Provider Nurse Practitioner Family
DX: Z20.822 Contact with and (suspected) exposure to COVID-19 (principal)
CPT/HCPCS: 87635

== ENCOUNTER 2025-03-11 08:51 | Outpatient (CLI) | payer MEDICARE, OTHER, SELFPAY ==
[2025-03-11 09:10] VITALS: BP 133/63; PULSE 70; RESP 16; TEMP 36.6; O2SAT 99
[2025-03-11 09:32] VITALS: BP 137/63; PULSE 66; RESP 18; O2SAT 98
[2025-03-11] MEDS: LIDOCAINE 1% (PF) 5 ML 10 ML INJ (09:41)
[2025-03-11 09:45] VITALS: BP 124/60; PULSE 71; RESP 16; O2SAT 99
--- NOTE | 2025-03-11 12:32 | P.PCN_ITS ---
Date/Time/Diagnoses
--- NOTE | 2025-03-11 12:32 | PM.PROC.IR.1 ---
Date/Time/Diagnoses Date of procedure: 03/11/25 Time of procedure: 09:30 Pre-procedure diagnosis: Lumbosacral radiculopathy Post-procedure diagnosis: same Procedure Notes Procedure: Interlaminar epidural steroid injection L5-S1 Indications: Lumbosacral radiculopathy Physician: Harish Mars Total sedation minutes: 0 Complications: none Procedure in detail & Post-procedure care: Patient is here for the planned procedure today as noted. No significant change since the last office visit. For additional clinical scenario please see those office notes. Focused exam: Vital signs reviewed as charted on intake. Gen: Well developed. No acute distress. CV: RRR, no M/R/G Chest: Non-labored breathing, CTAB. Psych: Alert and well-oriented. Mood/Affect: normal. Patient suitable for the planned procedure today: Yes === The following procedure was performed in the office today: Lumbar Epidural Steroid Injection with fluoroscopic guidance - Interlaminar approach (24367) Levels Treated: [L5-S1] Approach: interlaminar Soft tissue: [1% lidocaine 2 mL] Test dose: [1% lidocaine 1 mL] Injectate: 0.75 mL of Depo-Medrol (80mg/mL) in 1.25 mL 1% lidocaine and 2 mL normal saline Fluoroscopy Agent: Isovue 300-M 1.5 mL Notes: 4.5 in 20 gauge Touhy needle utilized and adequate. Preprocedure pain 4/10, postprocedure pain 2/10. Procedure: After discussing the risks, benefits, and alternatives to the procedure, the patient expressed understanding and wished to proceed. The risks include but are not limited to infection, allergic reaction, nerve damage, stroke, paralysis, epidural hematoma, syncope, headache, respiratory or cardiac arrest, spinal cord injury, and scar formation. Informed consent was obtained and all patient questions were answered. The patient was brought to the procedure suite and placed in the prone position. A pre-procedural pause was conducted to verify: correct patient identity, procedure to be performed and as applicable, correct side and site, correct patient position, and any special requirements. Using a paramedian approach from the side noted above, the region overlying the target was localized under fluoroscopic visualization and the soft tissues overlying this structure were infiltrated with the anesthetic listed above. With fluoroscopic guidance, a #20 gauge Tuohy needle (unless otherwise noted) was inserted into the epidural space using a paramedian approach. The epidural space was localized utilizing intermittent multiplanar fluoroscopic guidance and loss of resistance technique. After negative aspiration, the contrast noted above was injected into the epidural space and the flow of contrast was observed, confirming epidural spread without evidence of intravascular or intrathecal spread. Multi-planar radiographs were obtained for documentation purposes. A test dose of lidocaine was injected into the above noted epidural space, and the patient was observed for 30-60 seconds. No sensory deficits were reported and normal lower extremity motor function was noted. Subsequently, the injectate as noted above was administered into the level noted above. The patient tolerated the procedure well and was discharged after an appropriate period of observation. If there are any complications, the patient was instructed to call us. The patient is to follow-up with the requesting provider in 2-3 weeks. This note was compiled using voice recognition software and therefore may contain typos. Please contact the author with any questions or concerns.
== END 2025-03-11 09:50 | disposition home or self-care (01) ==
LOC: RAD 08:52
PROVIDERS: PCP Internal Medicine; Referring Provider Internal Medicine; Visit Provider Physical Medicine & Rehabilitation
DX: M54.17 Radiculopathy, lumbosacral region (principal)
CPT/HCPCS: 62323; J1010

== ENCOUNTER 2025-04-21 11:14 | Outpatient (CLI) | payer MEDICARE, OTHER, SELFPAY ==
[2025-04-21 11:25] VITALS: BP 156/77; PULSE 76; RESP 16; TEMP 36.2; O2SAT 97
[2025-04-21 11:50] VITALS: PULSE 77; RESP 16; O2SAT 96
[2025-04-21 11:55] VITALS: BP 174/77; PULSE 67; RESP 16; O2SAT 95
[2025-04-21] MEDS: LIDOCAINE 1% (PF) 5 ML 10 ML INJ (11:56)
[2025-04-21 12:01] VITALS: BP 172/70; PULSE 65; RESP 19; O2SAT 95
[2025-04-21 12:10] VITALS: BP 179/99; PULSE 83; RESP 16; O2SAT 95
--- NOTE | 2025-04-21 13:11 | P.PCN_ITS ---
Date/Time/Diagnoses Date of procedure: 04/21/25 Time of procedure: 12:00 Pre-procedure diagnosis: Sacroiliac joint pain, dysfunction, sacroiliitis Post-procedure diagnosis: same Procedure Notes Procedure: Bilateral sacroiliac joint injection Indications: Sacroiliac joint pain, dysfunction, sacroiliitis Physician: Harish Mars Total sedation minutes: 0 Complications: none Procedure in detail & Post-procedure care: Patient is here for the planned procedure today as noted. No significant change since the last office visit. For additional clinical scenario please see those office notes. Focused exam: Vital signs reviewed as charted on intake. Gen: Well developed. No acute distress. CV: RRR, no M/R/G Chest: Non-labored breathing, CTAB. Psych: Alert and well-oriented. Mood/Affect: normal. Patient suitable for the planned procedure today: Yes === The following procedure was performed today: Sacroiliac joint injection with fluoroscopic guidance ([id number]) Approach: Posterior, inferior pole Laterality: Bilateral Soft tissue: [1% lidocaine 2 mL] Injectate: [1 mL of methylprednisolone (80mg/mL) in 5 mL 1% lidocaine] distributed equally between the 2 noted targets Fluoroscopy Agent: Isovue 300-M 1.5 mL Notes: Preprocedure pain 8/10, postprocedure pain 7/10. Procedure: Informed consent was obtained and all patient questions were answered. After discussing the risks, benefits, and alternatives to the procedu re, the patient expressed understanding and wished to proceed. The patient was brought to the procedure suite and placed in the prone position, and prepped and draped in a sterile fashion. A pre-procedural pause was conducted to verify: correct patient identity, procedure to be performed and as applicable, correct side and site, correct patient position, and any special requirements. The fluoroscopic C-arm was positioned for optimal visualization of the targeted sacroiliac (SI) joint. The inferior portion of the SI joint was localized under fluoroscopic visualization and local anesthetic was utilized for soft tissue local anesthesia. A 22 gauge spinal needle was inserted into the fluoroscopically hyperlucent region within the SI joint. If noted above, the noted contrast agent was injected and a partial arthrogram was obtained. Multiplanar imaging was performed for confirmation and appropriate images were saved. The steroid/anesthetic solution noted above was then injected into the SI joint. Procedure was repeated on the other side. The patient tolerated the procedure well and was discharged after an appropriate period of observation. If there are any complications or concerns, the patient was instructed to call us. The patient is to follow-up with the ordering provider in 2-3 weeks/as planned. This note was compiled using voice recognition software and therefore may contain typos. Please contact the author with any questions or concerns.
== END 2025-04-21 12:17 | disposition home or self-care (01) ==
LOC: RAD 11:14
PROVIDERS: PCP Internal Medicine; Referring Provider Physical Medicine & Rehabilitation; Visit Provider Physical Medicine & Rehabilitation
DX: M46.1 Sacroiliitis, not elsewhere classified (principal); M53.3 Sacrococcygeal disorders, not elsewhere classified
CPT/HCPCS: 27096; J1010